=== PATIENT | female | born 1940 | race Caucasian/White ===

== ENCOUNTER 2016-07-03 09:37 | Outpatient (CLI) | payer OTHER ==
--- NOTE | 2016-07-03 10:52 | DIAGNOSTIC IMAGING REPORT ---
PROCEDURE: US BILATERAL CAROTID DOPPLER INDICATION: TIA TECHNIQUE: Color Doppler duplex imaging of the carotid and vertebral vessels. COMPARISON: None. FINDINGS: Right carotid system: No significant stenosis visualized. The waveforms are normal. Left carotid system: No significant stenosis visualized. The waveforms are normal. Vertebral System: Antegrade vertebral artery flow bilaterally. Right common carotid artery peak systolic velocity 63 cm/second. Right internal carotid artery peak systolic velocity 67 cm/second. Right external carotid artery peak systolic velocity 71 cm/second. Right zknqithc-gj-yjwqiz carotid artery ratio 1.1 Right vertebral artery peak systolic velocity 43 cm/second. Left common carotid artery peak systolic velocity 57 cm/second. Left internal carotid artery peak systolic velocity 54 cm/second. Left external carotid artery peak systolic velocity 44 cm/second. Left sfacegnn-ra-ubxlff carotid artery ratio 0.9 Left vertebral artery peak systolic velocity 41 cm/second. IMPRESSION: 1. No hemodynamically significant stenosis in either carotid system. 2. Antegrade vertebral artery flow bilaterally. Velocity criteria are extrapolated from diameter data as defined by the Society of Radiologists in Ultrasound Consensus Conference, Radiology 2003; 229; 340-346.
--- NOTE | 2016-07-03 10:52 | DIAGNOSTIC IMAGING REPORT ---
PROCEDURE: US BILATERAL CAROTID DOPPLER INDICATION: TIA TECHNIQUE: Color Doppler duplex imaging of the carotid and vertebral vessels. COMPARISON: None. FINDINGS: Right carotid system: No significant stenosis visualized. The waveforms are normal. Left carotid system: No significant stenosis visualized. The waveforms are normal. Vertebral System: Antegrade vertebral artery flow bilaterally. Right common carotid artery peak systolic velocity 63 cm/second. Right internal carotid artery peak systolic velocity 67 cm/second. Right external carotid artery peak systolic velocity 71 cm/second. Right foskrktd-hz-sowxxv carotid artery ratio 1.1 Right vertebral artery peak systolic velocity 43 cm/second. Left common carotid artery peak systolic velocity 57 cm/second. Left internal carotid artery peak systolic velocity 54 cm/second. Left external carotid artery peak systolic velocity 44 cm/second. Left hlssqbgz-sc-ginfif carotid artery ratio 0.9 Left vertebral artery peak systolic velocity 41 cm/second. IMPRESSION: 1. No hemodynamically significant stenosis in either carotid system. 2. Antegrade vertebral artery flow bilaterally. Velocity criteria are extrapolated from diameter data as defined by the Society of Radiologists in Ultrasound Consensus Conference, Radiology 2003; 229; 340-346.
--- NOTE | 2016-07-03 13:15 | DIAGNOSTIC IMAGING REPORT ---
PROCEDURE: MG BILATERAL SCREENING W/CAD INDICATION: Screening. Family history breast carcinoma (niece). TECHNIQUE: Bilateral CC and MLO digital views. COMPARISON: None available. FINDINGS: Computer-aided detection applied. Dense parenchymal pattern with a few dystrophic and micro calcifications. IMPRESSION: 1. Probable negative mammogram. Comparison with prior outside mammogram studies is recommended. If and when these become available, an addendum can be issued this report. RESULT CODE: 0- Prior images needed. A. A negative report should not delay biopsy if a dominant or clinically suspicious mass is present. 10-15% of cancers are not identified by x-ray. B. A negative report may reinforce clinical impression. C. Adenosis and dense breasts may obscure an underlying neoplasm. D. False positive reports average 6-10%. E.. A yearly screening mammogram is recommended. A reminder letter will be scheduled.
== END 2016-07-03 23:00 ==
LOC: US SRH 09:37 → MAM SRH 11:30 → US SRH 23:00
DX: Z12.31 Encounter for screening mammogram for malignant neoplasm of breast (principal); Z13.6 Encounter for screening for cardiovascular disorders

== ENCOUNTER 2016-10-11 08:31 | Emergency (ER) | payer OTHER ==
--- NOTE | 2016-10-11 10:32 | DIAGNOSTIC IMAGING REPORT ---
PROCEDURE: XR CHEST 1 VIEW INDICATION: SHORTNESS OF BREATH TECHNIQUE: Portable AP view 10:12 a.m. COMPARISON: None. FINDINGS: Mild hyperinflation. Lungs are clear. Heart and mediastinum are normal. Mild dextroscoliosis. IMPRESSION: 1. Hyperinflation.
--- NOTE | 2016-10-11 13:15 | ED CLINICAL REPORT ---
Clinical Report - Physicians/Mid Levels [facility] [address] [place] [address] 10/11/2016 8:32 Patient: MAYA COLMENARES Time Seen: 09:31 Oct 11 2016. Arrived- By private vehicle. Historian- patient. CPT: ER phys charges level 5 plus (#[id number]). EKG interpretation (#[id number]). HISTORY OF PRESENT ILLNESS Chief Complaint: CHEST PAIN. SHORTNESS OF BREATH. This started today also dysuria and is still present. Onset during light activity. At its maximum, severity described as moderate. When seen in the E.D., severity described as moderate. Modifying factors- worsened by deep breaths. It is described as burning and "pain" and it is described as located in the central chest area. No nausea, vomiting, difficulty breathing or diaphoresis. Similar symptoms previously: None. Recent medical care: Not recently seen/assessed. REVIEW OF SYSTEMS No fever, chills, cough, pedal edema or calf pain. No sore throat, black stools, difficulty with urination, skin rash or enlarged lymph nodes. No joint pain or bloody stools. She has had abdominal pain. All systems otherwise negative, except as recorded above. PAST HISTORY Depression. TIA - Transient Ischemic Attack. CVA - Cerebrovascular Accident. Parkinson's Disease. Additional Surgeries: no known surgeries. Medications: Carbidopa-Levodopa Oral. Zoloft Oral. Fluconazole Oral. Primidone Oral. Plavix. SOCIAL HISTORY Never smoker. No alcohol use or drug use. ADDITIONAL NOTES The nursing notes have been reviewed. PHYSICAL EXAM Vital Signs: 10/11/2016 08:35 BP: 145/99. HR: 94. RR: 22. O2 saturation: 96%. Appearance: Alert. No acute distress. (Mask facies). Eyes: Pupils equal, round and reactive to light. Eyes normal inspection. ENT: Pharynx normal. Neck: Normal inspection. Neck supple. CVS: Normal heart rate and rhythm. Heart sounds normal. Pulses normal. No cardiac murmur. Respiratory: No respiratory distress. Breath sounds normal. Chest nontender. Abdomen: Soft. Moderate tenderness in the epigastric area. Bowel sounds normal. No mass. Back: Normal external inspection. No CVA tenderness. Skin: Skin warm. Normal skin color. No rash. Extremities: Extremities exhibit normal ROM. No calf tenderness. No lower extremity edema. Neuro: Oriented X 3. No motor deficit. No sensory deficit. Reflexes normal. LABS, X-RAYS, AND EKG EKG: No acute process. No acute ischemia. Normal sinus rhythm. Normal P waves. Normal QRS complex. Normal axis. Normal ST and T waves. Prior EKG unavailable. The study has been interpreted contemporaneously. The study has been independently viewed by me. The EKG appears to be a good tracing. Chest X-ray: Hyperinflation present. No infiltrate. Views: AP (portable). Technique: good. The X-rays were independently viewed by me and interpreted contemporaneously by me. Prior films were not available for comparison. Laboratory Tests: CBC w Diff: (CIARA: 10/11/2016 10:10) ( [facility] Final results Test Result Flag Units (Reference) WHITE BLOOD COUNT 9.3 K/uL (4.5-11.5) RED BLOOD COUNT 4.73 M/uL (4.00-5.20) HEMOGLOBIN 13.7 gm/dL (12.0-16.0) HEMATOCRIT 41.2 % (36.0-46.0) MEAN CELL VOLUME 87 fL (80-100) MEAN CORPUSCULAR HGB 29 pg (26-34) MEAN CORPUSCULAR HGB CONC 33 g/dL (31-37) RED CELL DISTRIBUTION WIDTH 12.9 % (11.6-14.8) PLATELET COUNT 285 K/uL (150-400) NEUTROPHIL % 79.8 H % (50-75) LYMPH % 14.2 L % (25-40) MONO % 5.0 % (3-14) EOSINOPHIL % 0.8 % (0-4) BASOPHIL % 0.2 % (0-2) [id number]: (CIARA: 10/11/2016 10:10) ( [facility] 10/11[facility]2016 11:07) Final results Test Result Flag Units (Reference) D-DIMER QUANTITATIVE < 0.27 L ug/mLFEU (0.27-0.52) The primary value of this quantitative assay relates toits negative predictive value (i.e. exclusion) of pulmonaryembolism/deep vein thrombosis/DIC.Elevated levels of d-dimer may also occur with:, age, cancer, inflammation, liver disease,post-op, infection, hematoma, coronary disease, peripheralarteriopathy, bleeding disorders and thrombolytic treatment.Results should be correlated with other clinical andradiological data.Testing Methodology: Latex Immunoassay Troponin-I: (CIARA: 10/11/2016 12:15) ( [facility] 10/11/2016 13:00) Final results Test Result Flag Units (Reference) TROPONIN I <0.05 ng/mL (0.00-1.5) TROPONIN REFERENCE RANGE:<0.1 NEGATIVE0.1-1.5 INDETERMINANT>1.5 POSITIVE BNP: (CIARA: 10/11/2016 10:10) ( [facility] 10/11/2016 11:37) Final results Test Result Flag Units (Reference) B-TYPE NATRIURETIC PEPTIDE 40.9 pg/ml (5-100) CHEM 13 PANEL: (CIARA: 10/11/2016 10:10) ( [facility] 10/11/2016 11:05) Final results Test Result Flag Units (Reference) GLUCOSE 99 mg/dL (70-110) BUN 18 mg/dL (7-18) CREATININE 0.9 mg/dL (0.6-1.3) Estimated GFR >60 mL/min Estimated GFR- >60 mL/min Note: Persistent reduction over 3 months in eGFR<60 mL/min/1.73 m2 defines CKD. Patients with eGFR values>=60 mL/min/1.73 m2 may also have CKD if evidence ofpersistent proteinuria. Additional information may be foundat [email or web address]. SODIUM 141 mmol/L (136-145) POTASSIUM 4.3 mmol/L (3.5-5.1) CHLORIDE 103 mmol/L (98-107) CARBON DIOXIDE 28 mmol/L (21-32) CALCIUM 9.0 mg/dL (8.5-10.1) TOTAL PROTEIN 7.1 g/dL (6.4-8.2) ALBUMIN 3.5 g/dL (3.3-5.0) BILIRUBIN, TOTAL 0.4 mg/dL (0.0-1.0) ALKALINE PHOSPHATASE 85 U/L (46-116) AST (SGOT) 15 U/L (15-37) ALT (SGPT) 7 L U/L (12-78) MAGNESIUM 2.0 mg/dL (1.8-2.4) LIPASE 271 U/L (73-393) AMYLASE 101 U/L (25-115) CPK 119 U/L (24-260) TROPONIN I <0.05 ng/mL (0.00-1.5) TROPONIN REFERENCE RANGE:<0.1 NEGATIVE0.1-1.5 INDETERMINANT>1.5 POSITIVE . PROGRESS AND PROCEDURES Course of Care: Pt is on plavix and took it today. White GI cocktail : minimal effect. Still has epigastric tenderness to palpation. Carafate 20 ml Protonix 40 mg po Patient is stable. Symptoms much better. Patient/family counseled. Disposition: Discharged. Condition: stable and improved. CLINICAL IMPRESSION Probable chest pain of GI origin (due to esophageal reflux and esophagitis). INSTRUCTIONS No strenuous activity. Rest. Avoid alcohol and NSAIDS. Examples of NSAIDS include aspirin, ibuprofen (Advil) and naproxen (Aleve). Avoid spicy foods. Other diet: No caffeine. No alcohol. Warnings: Further evaluation is necessary. GENERAL WARNINGS: Return or contact your physician immediately if your condition worsens or changes unexpectedly, if not improving as expected, or if other problems arise. Prescription Medications: Zofran (orally disintegrating tablets) 4 mg: take 1 orally every 6 hours as needed for nausea. Dispense ten (10). No refill. Substitution is permissible. Carafate Liquid 1g/10 mL: take two (2) teaspoons orally four times daily (30 minutes before meals and at bedtime) for 10 days. Dispense sufficient quantity. No refill. Substitution is permissible. Prilosec 40 mg capsules: take 1 capsule orally every day for 10 days. Dispense ten (10). No refill. Substitution is permissible. Follow-up: Follow up with your doctor in one week. Call for an appointment. Understanding of the discharge instructions verbalized by patient. Discharge instructions reviewed with and understanding was verbalized by neighbor. (Electronically signed by Alex Silva MD 10/13/2016 20:50)
--- NOTE | 2016-10-11 13:15 | ED ORDER SUMMARY ---
..... Patient: MAYA COLMENARES OrderSheet [facility] VisitID: [id number] [address] [place] [address] 76y, F Registration Date/Time: 10/11/2016 ORDER SHEET Weight: 47.6 kg (stated) Allergies: None GENERAL ORDERS: Chest 1V Urgent (:10/11/2016 Radha VALDEZ) (Ack 10:00 All) (10:10 DMasalenaarka R.N.) [employer]in Outfitter (Continuous) (10/11/2016 Radha VALDEZ) (Ack 10:01 All) (10:01 Razaa R.N.) Cardiac Panel Stat (10/11/2016 Radha VALDEZ) (Ack 10:00 All) (10:01 Razaa R.N.) BNP Urgent (10/11/2016 Radha VALDEZ) (Ack 10:00 All) (10:01 Razaa R.N.) D-Dimer Urgent (10/11/2016 Radha VALDEZ) (Ack 10:00 All) (10:01 Razaa R.N.) Lipase Urgent (10/11/2016 Radha VALDEZ) (Ack 10:00 All) (10:01 Razaa R.N.) Amylase Urgent (10/11/2016 Radha VALDEZ) (Ack 10:00 All) (10:01 Razaa R.N.) Oxygen (2 L/min) (NC) (10/11/2016 Radha VALDEZ) (10:01 Armida R.N.) (Ack 10:01 All) Pulse oximeter (10/11/2016 Radha VALDEZ) (10:01 Armida R.N.) (Ack 10:01 All) EKG - ER Stat (10/11/2016 Radha VALDEZ) (Ack 10:01 All) (10:01 DMaziarka R.N.) Troponin-I (draw at 1200) Urgent (11:14 10/11/2016 Radha VALDEZ) (Ack 11:22 OHernandez) (11:26 DMaziarka R.N.) MEDICATION ORDERS: GI Cocktail WHITE PO 50 mL (NOW) (09:59 10/11/2016 Radha VALDEZ) (Ack 10:02 DMaziarka R.N.) (10:10 DMaziarka R.N.) Carafate PO 20 ml (NOW) (11:14 10/11/2016 Radha VALDEZ) (Ack 11:17 Yonyziarka R.N.) (11:23 DMaziarka R.N.) Protonix PO 40 mg (NOW) (11:14 10/11/2016 Radha VALDEZ) (Ack 11:17 DMaziarka R.N.) (11:23 DMaziarka R.N.) IV FLUIDS: IV Saline Lock (09:59 10/11/2016 Radha VALDEZ) (Ack 10:01 Josepharka R.N.) ORDER SHEET NOTES: [Electronically signed by Jannet Gorman R.N. (13:35 10/11/2016)] [Electronically signed by Alex Silva MD (20:50 10/13/2016)] [Electronically locked/signed by Jannet Gorman R.N. (13:35 10/11/2016)]
--- NOTE | 2016-10-11 13:15 | ED CLINICAL REPORT ---
Clinical Report - Physicians/Mid Levels [facility] [address] [place] [address] 10/11/2016 8:32 Patient: MAYA COLMENARES Time Seen: 09:31 Oct 11 2016. Arrived- By private vehicle. Historian- patient. CPT: ER phys charges level 5 plus (#[id number]). EKG interpretation (#[id number]). HISTORY OF PRESENT ILLNESS Chief Complaint: CHEST PAIN. SHORTNESS OF BREATH. This started today also dysuria and is still present. Onset during light activity. At its maximum, severity described as moderate. When seen in the E.D., severity described as moderate. Modifying factors- worsened by deep breaths. It is described as burning and "pain" and it is described as located in the central chest area. No nausea, vomiting, difficulty breathing or diaphoresis. Similar symptoms previously: None. Recent medical care: Not recently seen/assessed. REVIEW OF SYSTEMS No fever, chills, cough, pedal edema or calf pain. No sore throat, black stools, difficulty with urination, skin rash or enlarged lymph nodes. No joint pain or bloody stools. She has had abdominal pain. All systems otherwise negative, except as recorded above. PAST HISTORY Depression. TIA - Transient Ischemic Attack. CVA - Cerebrovascular Accident. Parkinson's Disease. Additional Surgeries: no known surgeries. Medications: Carbidopa-Levodopa Oral. Zoloft Oral. Fluconazole Oral. Primidone Oral. Plavix. SOCIAL HISTORY Never smoker. No alcohol use or drug use. ADDITIONAL NOTES The nursing notes have been reviewed. PHYSICAL EXAM Vital Signs: 10/11/2016 08:35 BP: 145/99. HR: 94. RR: 22. O2 saturation: 96%. Appearance: Alert. No acute distress. (Mask facies). Eyes: Pupils equal, round and reactive to light. Eyes normal inspection. ENT: Pharynx normal. Neck: Normal inspection. Neck supple. CVS: Normal heart rate and rhythm. Heart sounds normal. Pulses normal. No cardiac murmur. Respiratory: No respiratory distress. Breath sounds normal. Chest nontender. Abdomen: Soft. Moderate tenderness in the epigastric area. Bowel sounds normal. No mass. Back: Normal external inspection. No CVA tenderness. Skin: Skin warm. Normal skin color. No rash. Extremities: Extremities exhibit normal ROM. No calf tenderness. No lower extremity edema. Neuro: Oriented X 3. No motor deficit. No sensory deficit. Reflexes normal. LABS, X-RAYS, AND EKG EKG: No acute process. No acute ischemia. Normal sinus rhythm. Normal P waves. Normal QRS complex. Normal axis. Normal ST and T waves. Prior EKG unavailable. The study has been interpreted contemporaneously. The study has been independently viewed by me. The EKG appears to be a good tracing. Chest X-ray: Hyperinflation present. No infiltrate. Views: AP (portable). Technique: good. The X-rays were independently viewed by me and interpreted contemporaneously by me. Prior films were not available for comparison. Laboratory Tests: CBC w Diff: (CIARA: 10/11/2016 10:10) ( [facility] Final results Test Result Flag Units (Reference) WHITE BLOOD COUNT 9.3 K/uL (4.5-11.5) RED BLOOD COUNT 4.73 M/uL (4.00-5.20) HEMOGLOBIN 13.7 gm/dL (12.0-16.0) HEMATOCRIT 41.2 % (36.0-46.0) MEAN CELL VOLUME 87 fL (80-100) MEAN CORPUSCULAR HGB 29 pg (26-34) MEAN CORPUSCULAR HGB CONC 33 g/dL (31-37) RED CELL DISTRIBUTION WIDTH 12.9 % (11.6-14.8) PLATELET COUNT 285 K/uL (150-400) NEUTROPHIL % 79.8 H % (50-75) LYMPH % 14.2 L % (25-40) MONO % 5.0 % (3-14) EOSINOPHIL % 0.8 % (0-4) BASOPHIL % 0.2 % (0-2) [id number]: (CIARA: 10/11/2016 10:10) ( [facility]) Final results Test Result Flag Units (Reference) D-DIMER QUANTITATIVE < 0.27 L ug/mLFEU (0.27-0.52) The primary value of this quantitative assay relates toits negative predictive value (i.e. exclusion) of pulmonaryembolism/deep vein thrombosis/DIC.Elevated levels of d-dimer may also occur with:, age, cancer, inflammation, liver disease,post-op, infection, hematoma, coronary disease, peripheralarteriopathy, bleeding disorders and thrombolytic treatment.Results should be correlated with other clinical andradiological data.Testing Methodology: Latex Immunoassay Troponin-I: (CIARA: 10/11/2016 12:15) ( [facility] 10/11/2016 13:00) Final results Test Result Flag Units (Reference) TROPONIN I <0.05 ng/mL (0.00-1.5) TROPONIN REFERENCE RANGE:<0.1 NEGATIVE0.1-1.5 INDETERMINANT>1.5 POSITIVE BNP: (CIARA: 10/11/2016 10:10) ( [facility] 10/11/2016 11:37) Final results Test Result Flag Units (Reference) B-TYPE NATRIURETIC PEPTIDE 40.9 pg/ml (5-100) CHEM 13 PANEL: (CIARA: 10/11/2016 10:10) ( [facility] 10/11/2016 11:05) Final results Test Result Flag Units (Reference) GLUCOSE 99 mg/dL (70-110) BUN 18 mg/dL (7-18) CREATININE 0.9 mg/dL (0.6-1.3) Estimated GFR >60 mL/min Estimated GFR- >60 mL/min Note: Persistent reduction over 3 months in eGFR<60 mL/min/1.73 m2 defines CKD. Patients with eGFR values>=60 mL/min/1.73 m2 may also have CKD if evidence ofpersistent proteinuria. Additional information may be foundat [email or web address].org. SODIUM 141 mmol/L (136-145) POTASSIUM 4.3 mmol/L (3.5-5.1) CHLORIDE 103 mmol/L (98-107) CARBON DIOXIDE 28 mmol/L (21-32) CALCIUM 9.0 mg/dL (8.5-10.1) TOTAL PROTEIN 7.1 g/dL (6.4-8.2) ALBUMIN 3.5 g/dL (3.3-5.0) BILIRUBIN, TOTAL 0.4 mg/dL (0.0-1.0) ALKALINE PHOSPHATASE 85 U/L (46-116) AST (SGOT) 15 U/L (15-37) ALT (SGPT) 7 L U/L (12-78) MAGNESIUM 2.0 mg/dL (1.8-2.4) LIPASE 271 U/L (73-393) AMYLASE 101 U/L (25-115) CPK 119 U/L (24-260) TROPONIN I <0.05 ng/mL (0.00-1.5) TROPONIN REFERENCE RANGE:<0.1 NEGATIVE0.1-1.5 INDETERMINANT>1.5 POSITIVE . PROGRESS AND PROCEDURES Course of Care: Pt is on plavix and took it today. White GI cocktail : minimal effect. Still has epigastric tenderness to palpation. Carafate 20 ml Protonix 40 mg po Patient is stable. Symptoms much better. Patient/family counseled. Disposition: Discharged. Condition: stable and improved. CLINICAL IMPRESSION Probable chest pain of GI origin (due to esophageal reflux and esophagitis). INSTRUCTIONS No strenuous activity. Rest. Avoid alcohol and NSAIDS. Examples of NSAIDS include aspirin, ibuprofen (Advil) and naproxen (Aleve). Avoid spicy foods. Other diet: No caffeine. No alcohol. Warnings: Further evaluation is necessary. GENERAL WARNINGS: Return or contact your physician immediately if your condition worsens or changes unexpectedly, if not improving as expected, or if other problems arise. Prescription Medications: Zofran (orally disintegrating tablets) 4 mg: take 1 orally every 6 hours as needed for nausea. Dispense ten (10). No refill. Substitution is permissible. Carafate Liquid 1g/10 mL: take two (2) teaspoons orally four times daily (30 minutes before meals and at bedtime) for 10 days. Dispense sufficient quantity. No refill. Substitution is permissible. Prilosec 40 mg capsules: take 1 capsule orally every day for 10 days. Dispense ten (10). No refill. Substitution is permissible. Follow-up: Follow up with your doctor in one week. Call for an appointment. Understanding of the discharge instructions verbalized by patient. Discharge instructions reviewed with and understanding was verbalized by neighbor. (Electronically signed by Alex Silva MD 10/13/2016 20:50)
--- NOTE | 2016-10-11 13:15 | ED NURSING NOTES ---
Clinical Report - Nurses [facility] [place] [address] 10/11/2016 8:32 Patient: MAYA COLMENARES TRIAGE Triage time 08:35. Acuity: LEVEL 2. Chief Complaint: PAIN ON INSPIRATION and CHEST PAIN. --08:38 Jannet Gorman R.N. 08:35 10/11/16. BP: 145/99. HR: 94. RR: 22. O2 saturation: 96%. --08:38 Jannet Gorman R.N. 08:38 10/11/16. Temp: 98.2 F. Pain level now 10. --08:38 Jannet Gorman R.N. Weight: 47.6 kg stated. Height/Length: 61 inches Per Patient. BMI: 19.8. --08:35 Jannet Gorman R.N. Medications Plavix. --08:57 Jannet Gorman R.N. Primidone Oral. --08:58 Jannet Gorman R.N. Fluconazole Oral. --08:59 Jannet Gorman R.N. Zoloft Oral. --08:59 Jannet Gorman R.N. Carbidopa-Levodopa Oral. --09:04 Jannet Gorman R.N. Allergies None. --13:34 Jannet Gorman R.N. History Arrived by private vehicle, and accompanied by family. Primary physician (Ram[place]). This started today. Onset. (Heavyness in her chest with SOB). PAST MEDICAL HX: Immunizations: up-to-date. SOCIAL HX: Smoker- current status unknown (none). No alcohol use or drug use. --08:38 Jannet Gorman R.N. PROBLEMS: Depression. TIA - Transient Ischemic Attack. CVA - Cerebrovascular Accident. Parkinson's Disease. --09:00 Jannet Gorman R.N. ADDITIONAL SURGERIES: no known surgeries. PHYSICAL ASSESSMENT To room via wheelchair. GENERAL / NEURO / PSYCH: Alert. Oriented X 4. Appears in distress. RESPIRATORY: Mild respiratory distress. --08:39 Jannet Gorman R.N. NURSING PROGRESS NOTES Patient gowned. Patient ready for evaluation- ED physician notified. --08:39 Jannet Gorman R.N. 09:03 10/11/2016 Site #1 started via IV in the right hand with an 18g angiocath; two attempts. Saline lock flushed with 10 mL saline. --09:03 Jannet Gorman R.N. 10:10 10/11/2016 GI COCKTAIL WHITE (Simethicone) PO 30 mL given. Allergies verified and confirmed 5 rights. --10:10 Jannet Gorman R.N. Patient ID band checked for patient name and birthdate: patient confirmed. Blood samples drawn from the left antecubital space with 23g butterfly per protocol ; labeled in presence of the patient: rainbow set. --10:16 Kaye Greer EKG time: (08:45 AM). EKG was performed by a tech and shown to the ED physician. --10:16 Kaye Greer 10:25 10/11/16. BP: 134/63. HR: 70. RR: 20. O2 saturation: 98%. Pain level now 0/10. --10:26 Jannet Gorman R.N. The patient is calm and resting quietly. Overall patient status is improved. RESPIRATORY: No respiratory distress. --10:26 Jannet Gorman R.N. 11:23 10/11/2016 Carafate (Sucralfate) PO 2 gm given. Allergies verified and confirmed 5 rights. --11:23 Jannet Gorman R.N. 11:23 10/11/2016 Protonix (Pantoprazole Sodium) PO 40 mg given. Allergies verified and confirmed 5 rights. --11:23 Jannet Gorman R.N. The patient is calm and resting quietly. ( Up to bathroom kathryn well.). --12:00 Jannet Gorman R.N. Patient ID band checked for patient name and birthdate: patient confirmed. Blood samples drawn from the left antecubital space with 23g butterfly by [employer] per protocol ; labeled in presence of the patient: green top. --12:29 Kaye Greer 12:53 10/11/16. BP: 129/62. HR: 70. RR: 18. O2 saturation: 100%. Pain level now 0/10. --12:54 Jannet Gorman R.N. The patient is resting quietly. Overall patient status is improved. RESPIRATORY: No respiratory distress. Patient waiting for lab results. --12:54 Jannet Gorman R.N. 13:23 10/11/2016 Site #1 removed upon discharge. Bandage applied. --13:33 Jannet Gorman R.N. DISPOSITION / DISCHARGE Departure time: 13:32. Condition at departure: improved. No learning barriers present. Discharge instructions provided and reviewed with the patient. Patient verbalized understanding. Written instructions provided in Lao. The patient was accompanied by family. She left the Emergency Department ambulatory and via private vehicle. Family member driving. --13:32 Jannet Gorman R.N. 13:28 10/11/16. BP: 142/73. HR: 65. RR: 18. O2 saturation: 100%. Pain level now 0/10. --13:32 Jannet Gorman R.N. Locked/Released at 10/11/2016 13:35 by Jannet Gorman R.N.
--- NOTE | 2016-10-11 13:15 | ED ORDER SUMMARY ---
..... Patient: MAYA COLMENARES OrderSheet [facility] VisitID: [id number] [address] [place] [address] 76y, F Registration Date/Time: 10/11/2016 ORDER SHEET Weight: 47.6 kg (stated) Allergies: None GENERAL ORDERS: Chest 1V Urgent (:10/11/2016 Radha VALDEZ) (Ack 10:00 All) (10:10 DMasalenaarka R.N.) Workers Compensation Manager (Continuous) (10/11/2016 Radha VALDEZ) (Ack 10:01 All) (10:01 Razaa R.N.) Cardiac Panel Stat (10/11/2016 Radha VALDEZ) (Ack 10:00 All) (10:01 Razaa R.N.) BNP Urgent (10/11/2016 Radha VALDEZ) (Ack 10:00 All) (10:01 Razaa R.N.) D-Dimer Urgent (10/11/2016 Radha VALDEZ) (Ack 10:00 All) (10:01 Razaa R.N.) Lipase Urgent (10/11/2016 Radha VALDEZ) (Ack 10:00 All) (10:01 Razaa R.N.) Amylase Urgent (10/11/2016 Radha VALDEZ) (Ack 10:00 All) (10:01 Razaa R.N.) Oxygen (2 L/min) (NC) (10/11/2016 Radha VALDEZ) (10:01 Armida R.N.) (Ack 10:01 All) Pulse oximeter (10/11/2016 Radha VALDEZ) (10:01 Armida R.N.) (Ack 10:01 All) EKG - ER Stat (10/11/2016 Radha VALDEZ) (Ack 10:01 All) (10:01 DMaziarka R.N.) Troponin-I (draw at 1200) Urgent (11:14 10/11/2016 Radha VALDEZ) (Ack 11:22 OHernandez) (11:26 DMaziarka R.N.) MEDICATION ORDERS: GI Cocktail WHITE PO 50 mL (NOW) (09:59 10/11/2016 Radha VALDEZ) (Ack 10:02 DMaziarka R.N.) (10:10 DMaziarka R.N.) Carafate PO 20 ml (NOW) (11:14 10/11/2016 Radha VALDEZ) (Ack 11:17 Yonyziarka R.N.) (11:23 DMaziarka R.N.) Protonix PO 40 mg (NOW) (11:14 10/11/2016 Radha VALDEZ) (Ack 11:17 DMaziarka R.N.) (11:23 DMaziarka R.N.) IV FLUIDS: IV Saline Lock (09:59 10/11/2016 Radha VALDEZ) (Ack 10:01 Josepharka R.N.) ORDER SHEET NOTES: [Electronically signed by Jannet Gorman R.N. (13:35 10/11/2016)] [Electronically signed by Alex Silva MD (20:50 10/13/2016)] [Electronically locked/signed by Jannet Gorman R.N. (13:35 10/11/2016)]
--- NOTE | 2016-10-11 13:15 | ED NURSING NOTES ---
Clinical Report - Nurses [facility] [place] [address] 10/11/2016 8:32 Patient: MAYA COLMENARES TRIAGE Triage time 08:35. Acuity: LEVEL 2. Chief Complaint: PAIN ON INSPIRATION and CHEST PAIN. --08:38 Jannet Gorman R.N. 08:35 10/11/16. BP: 145/99. HR: 94. RR: 22. O2 saturation: 96%. --08:38 Jannet Gorman R.N. 08:38 10/11/16. Temp: 98.2 F. Pain level now 10. --08:38 Jannet Gorman R.N. Weight: 47.6 kg stated. Height/Length: 61 inches Per Patient. BMI: 19.8. --08:35 Jannet Gorman R.N. Medications Plavix. --08:57 Jannet Gorman R.N. Primidone Oral. --08:58 Jannet Gorman R.N. Fluconazole Oral. --08:59 Jannet Gorman R.N. Zoloft Oral. --08:59 Jannet Gorman R.N. Carbidopa-Levodopa Oral. --09:04 Jannet Gorman R.N. Allergies None. --13:34 Jannet Gorman R.N. History Arrived by private vehicle, and accompanied by family. Primary physician ([place]). This started today. Onset. (Heavyness in her chest with SOB). PAST MEDICAL HX: Immunizations: up-to-date. SOCIAL HX: Smoker- current status unknown (none). No alcohol use or drug use. --08:38 Jannet Gorman R.N. PROBLEMS: Depression. TIA - Transient Ischemic Attack. CVA - Cerebrovascular Accident. Parkinson's Disease. --09:00 Jannet Gorman R.N. ADDITIONAL SURGERIES: no known surgeries. PHYSICAL ASSESSMENT To room via wheelchair. GENERAL / NEURO / PSYCH: Alert. Oriented X 4. Appears in distress. RESPIRATORY: Mild respiratory distress. --08:39 Jannet Gorman R.N. NURSING PROGRESS NOTES Patient gowned. Patient ready for evaluation- ED physician notified. --08:39 Jannet Gorman R.N. 09:03 10/11/2016 Site #1 started via IV in the right hand with an 18g angiocath; two attempts. Saline lock flushed with 10 mL saline. --09:03 Jannet Gorman R.N. 10:10 10/11/2016 GI COCKTAIL WHITE (Simethicone) PO 30 mL given. Allergies verified and confirmed 5 rights. --10:10 Jannet Gorman R.N. Patient ID band checked for patient name and birthdate: patient confirmed. Blood samples drawn from the left antecubital space with 23g butterfly per protocol ; labeled in presence of the patient: rainbow set. --10:16 Kaye Greer EKG time: (08:45 AM). EKG was performed by a tech and shown to the ED physician. --10:16 Kaye Greer 10:25 10/11/16. BP: 134/63. HR: 70. RR: 20. O2 saturation: 98%. Pain level now 0/10. --10:26 Jannet Gorman R.N. The patient is calm and resting quietly. Overall patient status is improved. RESPIRATORY: No respiratory distress. --10:26 Jannet Gorman R.N. 11:23 10/11/2016 Carafate (Sucralfate) PO 2 gm given. Allergies verified and confirmed 5 rights. --11:23 Jannet Gorman R.N. 11:23 10/11/2016 Protonix (Pantoprazole Sodium) PO 40 mg given. Allergies verified and confirmed 5 rights. --11:23 Jannet Gorman R.N. The patient is calm and resting quietly. ( Up to bathroom kathryn well.). --12:00 Jannet Groman R.N. Patient ID band checked for patient name and birthdate: patient confirmed. Blood samples drawn from the left antecubital space with 23g butterfly by [employer] per protocol ; labeled in presence of the patient: green top. --12:29 Kaye Greer 12:53 10/11/16. BP: 129/62. HR: 70. RR: 18. O2 saturation: 100%. Pain level now 0/10. --12:54 Jannet Gorman R.N. The patient is resting quietly. Overall patient status is improved. RESPIRATORY: No respiratory distress. Patient waiting for lab results. --12:54 Jannet Gorman R.N. 13:23 10/11/2016 Site #1 removed upon discharge. Bandage applied. --13:33 Jannet Gorman R.N. DISPOSITION / DISCHARGE Departure time: 13:32. Condition at departure: improved. No learning barriers present. Discharge instructions provided and reviewed with the patient. Patient verbalized understanding. Written instructions provided in Kinyarwanda. The patient was accompanied by family. She left the Emergency Department ambulatory and via private vehicle. Family member driving. --13:32 Jannet Gorman R.N. 13:28 10/11/16. BP: 142/73. HR: 65. RR: 18. O2 saturation: 100%. Pain level now 0/10. --13:32 Jannet Gorman R.N. Locked/Released at 10/11/2016 13:35 by Jannet Gorman R.N.
--- NOTE | 2016-10-13 20:50 | ED MED RECONCILIATION SUMMARY ---
Patient: MAYA COLMENARES Medication Reconciliation Report [facility] VisitID: [id number] [address] [place] [address] 76y, F Registration Date/Time: 10/11/2016 Weight: 47.6 kg Height/Length: 61 in. BMI: 19.8 ALLERGIES: None The patient's Home Medications are listed below: THE FOLLOWING MEDICATIONS NEED TO BE RECONCILED: Carbidopa-Levodopa Oral Fluconazole Oral Plavix Primidone Oral Zoloft Oral The source(s) of the original Home Medication information: Not obtained. The following Medications were given to the patient in the Emergency Department: GI COCKTAIL WHITE [PO] PO 30 mL, administered: 10/11/2016 10:10:00 AM Carafate [PO] PO 2 gm, administered: 10/11/2016 11:23:00 AM Protonix [PO] PO 40 mg, administered: 10/11/2016 11:23:00 AM The following Medications were prescribed to the patient: Zofran (orally disintegrating tablets) 4 mg: take 1 orally every 6 hours as needed for nausea. Dispense ten (10). No refill. Substitution is permissible. -- Alex Silva MD Carafate Liquid 1g/10 mL: take two (2) teaspoons orally four times daily (30 minutes before meals and at bedtime) for 10 days. Dispense sufficient quantity. No refill. Substitution is permissible. -- Alex Silva MD Prilosec 40 mg capsules: take 1 capsule orally every day for 10 days. Dispense ten (10). No refill. Substitution is permissible. -- Alex Silva MD
--- NOTE | 2016-10-13 20:50 | ED MAR SUMMARY ---
..... Medication Administration Record [facility] [address] [place] [address] Patient: MAYA COLMENARES Visit ID: [id number] 76y, F Weight: 47.6 kg Height/Length: 61 in BMI: 19.8 ALLERGIES: None Given 10:10 10/11/2016 Jannet Gorman, R.N. Medication Administered: GI COCKTAIL WHITE [PO] (SIMETHICONE), Dose: 30 mL PO. Medication Ordered: GI Cocktail WHITE PO 50 mL (NOW). Given 11:10/11/2016 Jannet Gorman, R.N. Medication Administered: CARAFATE [PO] (SUCRALFATE), Dose: 2 gm PO. Medication Ordered: Carafate PO 20 ml (NOW). Given 11:10/11/2016 Jannet Gorman, R.N. Medication Administered: PROTONIX [PO] (PANTOPRAZOLE SODIUM), Dose: 40 mg PO. Medication Ordered: Protonix PO 40 mg (NOW).
--- NOTE | 2016-10-13 20:50 | ED DISCHARGE INSTRUCTIONS ---
Patient: MAYA COLMENARES General Instructions [facility] VisitID: [id number] [place] [address] 76y, F Registration Date/Time: 10/11/2016 Probable chest pain of GI origin (due to esophageal reflux and esophagitis). INSTRUCTIONS No strenuous activity. Rest. Avoid alcohol and NSAIDS. Examples of NSAIDS include aspirin, ibuprofen (Advil) and naproxen (Aleve). Avoid spicy foods. Other diet: No caffeine. No alcohol. Warnings: Further evaluation is necessary. GENERAL WARNINGS: Return or contact your physician immediately if your condition worsens or changes unexpectedly, if not improving as expected, or if other problems arise. Prescription Medications: Zofran (orally disintegrating tablets) 4 mg: take 1 orally every 6 hours as needed for nausea. Dispense ten (10). No refill. Substitution is permissible. Carafate Liquid 1g/10 mL: take two (2) teaspoons orally four times daily (30 minutes before meals and at bedtime) for 10 days. Dispense sufficient quantity. No refill. Substitution is permissible. Prilosec 40 mg capsules: take 1 capsule orally every day for 10 days. Dispense ten (10). No refill. Substitution is permissible. Follow-up: Follow up with your doctor in one week. Call for an appointment. Understanding of the discharge instructions verbalized by patient. Discharge instructions reviewed with and understanding was verbalized by neighbor. ADDITIONAL INFORMATION GERD (Adult) The esophagus is a tube that carries food from the mouth to the stomach. A valve at the lower end of the esophagus prevents stomach acid from flowing upward. If this valve does not work properly, acid from the stomach enters the esophagus. If this occurs over and over, the acid will injure the lining of the esophagus. This condition is called GERD (gastroesophageal reflux disease) or acid reflux. When stomach acid flows upward into the esophagus, it causes burning, pressure or sharp pain in the upper abdomen or mid to lower chest. The pain can spread to the neck, back, or shoulder, similar to heart pain (angina). There may be belching, an acid taste in the back of the throat, chronic cough, or sore throat or hoarseness. GERD symptoms often occur during the day after a big meal, but it can also occur at night when lying down. Smoking,as well as drinking alcohol, increases the risk of GERD. GERD is a chronic condition. Once it begins, it is often lifelong. Treatment includes changes in eating habits and the use of acid vernon medications to decrease the amount of acid in the stomach. Symptoms often improve with treatment, but if treatment is stopped, the symptoms usually return after a few months. So most persons with GERD will need to continue treatment. Home Care: Take the prescribed acid vernon medication for the full course of treatment even if you begin to feel better sooner. This medication can take up to several days to fully control your symptoms. If you cant afford the prescribed medication, you can try jycl-rwi-nkqhryr acid blockers, such as Pepcid AC, Tagamet, Zantac, or Aciphex. If these do not relieve your symptoms, a stronger acid-vernon can be tried, such as Prilosec OTC. You can use antacids, such as Tums, Rolaids, Mylanta, or Maalox, for pain. This will be useful the first few days after starting acid blockers when the blockers havent started working yet. Follow the directions on the label. Liquid antacids may work better than tablets. Note that antacids can interfere with absorption of certain medications. Specifically, do not take Tagamet (cimetidine), Zantac (ranitidine), or Carafate (sucralfate) within 1 hour of taking an antacid. Talk with your pharmacist if you have any questions. Limit or avoid fatty, fried, and spicy foods, as well as coffee, chocolate, mint, and foods with high acid content such as tomatoes and citrus fruit and juices (orange, grapefruit, lemon). Avoid alcohol and smoking. Dont eat large meals, especially at night. Frequent, smaller meals are best. Do not lie down right after eating. And dont eat anything 3 hours before going to bed. If you are overweight, losing weight will reduce symptoms. Women should not wear corsets or girdles because this increases pressure on the stomach and worsens reflux. If your symptoms occur during sleep, use a foam wedge to elevate your upper body (not just your head.) Or, place 4" blocks under the head of your bed. Follow Up with your doctor or as advised by our staff. Further testing may be needed. If you do not begin to improve over the next 4 days, contact your doctor. If you had an x-ray, CT scan, or ECG (electrocardiogram), it will be reviewed by a specialist. Youll be notified of any new findings that affect your care. Get Prompt Medical Attention if any of the following occur: Stomach pain gets worse or moves to the lower right abdomen (appendix area) Chest pain appears or gets worse, or spreads to the back, neck, shoulder, or arm Frequent vomiting (cant keep down liquids) Blood in the stool or vomit (red or black in color) Feeling weak or dizzy, fainting, or trouble breathing Fever of 100.4F (38C) or higher, or as directed by your healthcare provider [place] Diet A bland diet is used for patients with an upset stomach. It consists of foods that are mild and easy to digest. It is better to eat small frequent meals rather than three large meals a day. BEVERAGES OK: Fruit juices, non-caffeinated teas and coffee, non-carbonated means AVOID: Carbonated beverage, caffeinated tea and coffee, all alcoholic beverages BREAD OK: Refined white, wheat or rye bread, michael or soda crackers, Rosa Elena toast, plain rolls, bagels AVOID: Whole-grain bread CEREAL OK: Refined cereals: cooked or ready to eat AVOID: Whole grain cereals and granola, or those containing bran, seeds or nuts DESSERTS OK: Peanut butter and all others except those to "avoid" AVOID: Chocolate, cocoa, coconut, popcorn, nuts, seeds, jam, marmalade FRUITS OK: Canned, cooked, frozen or fresh fruits without seeds or tough skin AVOID: Olives, skin and seeds of fruit MEATS OK: All fresh or preserved meat, fish and fowl AVOID: Any that are prepared with those spices to "avoid" CHEESE & EGGS OK: Eggs, cottage cheese, cream cheese, other cheeses AVOID: All cheeses made with those spices to "avoid" POTATOES & PASTA OK: Potato, rice, macaroni, noodles, spaghetti AVOID: None SOUPS OK: All soups without heavy seasoning AVOID: Soups made with those spices to "avoid" VEGETABLES OK: Canned, cooked, fresh or frozen mildly flavored vegetables without seeds, skins or coarse fiber AVOID: Vegetables prepared with those spices to "avoid"; skin and seeds of vegetables and those with coarse fiber SPICES OK: Salt, lemon and [place] juice, vinegar, all extracts, christian, cinnamon, thyme, mace, allspice, paprika AVOID: Newberry powder, cloves, pepper, seed spices, garlic, gravy pickles, highly seasoned salad dressings Ondansetron Oral disintegrating tablet What is this medicine? ONDANSETRON (on KAREN se eloy) is used to treat nausea and vomiting caused by chemotherapy. It is also used to prevent or treat nausea and vomiting after surgery. How should I use this medicine? These tablets are made to dissolve in the mouth. Do not try to push the tablet through the foil backing. With dry hands, peel away the foil backing and gently remove the tablet. Place the tablet in the mouth and allow it to dissolve, then swallow. While you may take these tablets with water, it is not necessary to do so. Talk to your automatic centrifugal station operator regarding the use of this medicine in children. Special care may be needed. What side effects may I notice from receiving this medicine? Side effects that you should report to your doctor or health daycare assistant as soon as possible: allergic reactions like skin rash, itching or hives, swelling of the face, lips, or tongue breathing problems dizziness fast or irregular heartbeat feeling faint or lightheaded, falls fever and chills swelling of the hands and feet tightness in the chest Side effects that usually do not require medical attention (report to your doctor or health daycare assistant if they continue or are bothersome): constipation or diarrhea headache What may interact with this medicine? Do not take this medicine with any of the following medications: -apomorphine -cisapride -dofetilide -dronedarone -pimozide -thioridazine -ziprasidone This medicine may also interact with the following medications: -carbamazepine -phenytoin -rifampicin -tramadol -other medicines that prolong the QT interval (cause an abnormal heart rhythm) What if I miss a dose? If you miss a dose, take it as soon as you can. If it is almost time for your next dose, take only that dose. Do not take double or extra doses. Where should I keep my medicine? Keep out of the reach of children. Store between 2 and 30 degrees C (36 and 86 degrees F). Throw away any unused medicine after the expiration date. What should I tell my health care provider before I take this medicine? They need to know if you have any of these conditions: heart disease history of irregular heartbeat liver disease low levels of magnesium or potassium in the blood an unusual or allergic reaction to ondansetron, granisetron, other medicines, foods, dyes, or preservatives or trying to get breast-feeding What should I watch for while using this medicine? Check with your doctor or health daycare assistant as soon as you can if you have any sign of an allergic reaction. Sucralfate Oral suspension What is this medicine? SUCRALFATE (PAIGE floridalma fate) helps to treat ulcers of the intestine. How should I use this medicine? Take this medicine by mouth with a glass of water. Follow the directions on the prescription label. Shake well before using. Use a specially marked spoon or container to measure your medicine. Ask your pharmacist if you do not have one. Household spoons are not accurate. This medicine works best if you take it on an empty stomach, 1 hour before meals. Take your doses at regular intervals. Do not take your medicine more often than directed. Do not stop taking except on your doctor's advice. Talk to your automatic centrifugal station operator regarding the use of this medicine in children. Special care may be needed. What side effects may I notice from receiving this medicine? Side effects that you should report to your doctor or health daycare assistant as soon as possible: allergic reactions like skin rash, itching or hives, swelling of the face, lips, or tongue difficulty breathing Side effects that usually do not require medical attention (report to your doctor or health daycare assistant if they continue or are bothersome): back pain constipation drowsy, dizzy dry mouth headache stomach upset, gas trouble sleeping What may interact with this medicine? antacid cimetidine digoxin ketoconazole phenytoin quinidine ranitidine some antibiotics like ciprofloxacin, norfloxacin, and ofloxacin theophylline thyroid hormones warfarin What if I miss a dose? If you miss a dose, take it as soon as you can. If it is almost time for your next dose, take only that dose. Do not take double or extra doses. Where should I keep my medicine? Keep out of the reach of children. Store at room temperature between 20 and 25 degrees C (68 and 77 degrees F). Keep container tightly closed. Throw away any unused medicine after the expiration date. What should I tell my health care provider before I take this medicine? They need to know if you have any of these conditions: kidney disease an unusual or allergic reaction to sucralfate, other medicines, foods, dyes, or preservatives or trying to get breast-feeding What should I watch for while using this medicine? Visit your doctor or health daycare assistant for regular check ups. Let your doctor know if your symptoms do not improve or if you feel worse. Antacids should not be taken within one half hour before or after this medicine. Omeprazole Magnesium Gastro-resistant tablet What is this medicine? OMEPRAZOLE (oh ME pray zol) prevents the production of acid in the stomach. It is used to treat the symptoms of heartburn. You can buy this medicine without a prescription. This product is not for long-term use, unless otherwise directed by your doctor or health daycare assistant. How should I use this medicine? Take this medicine by mouth. Follow the directions on the product label. If you are taking this medicine without a prescription, take one tablet every day. Do not use for longer than 14 days or repeat a course of treatment more often than every 4 months unless directed by a doctor or healthcare professional. Take your dose at regular intervals every 24 hours. Swallow the tablet whole with a drink of water. Do not crush, break or chew. This medicine works best if taken on an empty stomach 30 minutes before breakfast. If you are using this medicine with the prescription of your doctor or healthcare professional, follow the directions you were given. Do not take your medicine more often than directed. Talk to your automatic centrifugal station operator regarding the use of this medicine in children. Special care may be needed. What side effects may I notice from receiving this medicine? Side effects that you should report to your doctor or health daycare assistant as soon as possible: allergic reactions like skin rash, itching or hives, swelling of the face, lips, or tongue bone, muscle or joint pain breathing problems chest pain or chest tightness dark yellow or brown urine diarrhea dizziness fast, irregular heartbeat feeling faint or lightheaded fever or sore throat muscle spasm palpitations redness, blistering, peeling or loosening of the skin, including inside the mouth seizures tremors unusual bleeding or bruising unusually weak or tired yellowing of the eyes or skin Side effects that usually do not require medical attention (Report these to your doctor or health daycare assistant if they continue or are bothersome.): constipation dry mouth headache loose stools nausea What may interact with this medicine? Do not take this medicine with any of the following medications: atazanavir clopidogrel nelfinavir This medicine may also interact with the following medications: ampicillin certain medicines for anxiety or sleep certain medicines that treat or prevent blood clots like warfarin cyclosporine diazepam digoxin disulfiram iron salts phenytoin prescription medicine for fungal or yeast infection like itraconazole, ketoconazole, voriconazole saquinavir tacrolimus What if I miss a dose? If you miss a dose, take it as soon as you can. If it is almost time for your next dose, take only that dose. Do not take double or extra doses. Where should I keep my medicine? Keep out of the reach of children. Store at room temperature between 20 and 25 degrees C (68 and 77 degrees F). Protect from light and moisture. Throw away any unused medicine after the expiration date. What should I tell my health care provider before I take this medicine? They need to know if you have any of these conditions: black or bloody stools chest pain difficulty swallowing have had heartburn for over 3 months have heartburn with dizziness, lightheadedness or sweating liver disease stomach pain unexplained weight loss vomiting with blood wheezing an unusual or allergic reaction to omeprazole, other medicines, foods, dyes, or preservatives or trying to get breast-feeding What should I watch for while using this medicine? It can take several days before your heartburn gets better. Check with your doctor or health daycare assistant if your condition does not start to get better, or if it gets worse. Do not treat diarrhea with over the counter products. Contact your doctor if you have diarrhea that lasts more than 2 days or if it is severe and watery. Do not treat yourself for heartburn with this medicine for more than 14 days in a row. You should only use this medicine for a 2-week treatment period once every 4 months. If your symptoms return shortly after your therapy is complete, or within the 4 month time frame, call your doctor or health daycare assistant. You have been given the following additional information: GERD (Adult) Diet, [place] (Adult) Ondansetron Oral disintegrating tablet Sucralfate Oral suspension Omeprazole Magnesium Gastro-resistant tablet No strenuous activity. Rest. (Electronically signed by Alex Silva MD 10/13/2016 20:50)
--- NOTE | 2016-10-13 20:50 | ED MAR SUMMARY ---
..... Medication Administration Record [facility] [address] [place] [address] Patient: MAYA COLMENARES Visit ID: [id number] 76y, F Weight: 47.6 kg Height/Length: 61 in BMI: 19.8 ALLERGIES: None Given 10:10 10/11/2016 Jannet Gorman, R.N. Medication Administered: GI COCKTAIL WHITE [PO] (SIMETHICONE), Dose: 30 mL PO. Medication Ordered: GI Cocktail WHITE PO 50 mL (NOW). Given 11:10/11/2016 Jannet Gorman, R.N. Medication Administered: CARAFATE [PO] (SUCRALFATE), Dose: 2 gm PO. Medication Ordered: Carafate PO 20 ml (NOW). Given 11:10/11/2016 Jannet Gorman, R.N. Medication Administered: PROTONIX [PO] (PANTOPRAZOLE SODIUM), Dose: 40 mg PO. Medication Ordered: Protonix PO 40 mg (NOW).
--- NOTE | 2016-10-13 20:50 | ED DISCHARGE INSTRUCTIONS ---
Patient: MAYA COLMENARES General Instructions [facility] VisitID: [id number] [place] [address] 76y, F Registration Date/Time: 10/11/2016 Probable chest pain of GI origin (due to esophageal reflux and esophagitis). INSTRUCTIONS No strenuous activity. Rest. Avoid alcohol and NSAIDS. Examples of NSAIDS include aspirin, ibuprofen (Advil) and naproxen (Aleve). Avoid spicy foods. Other diet: No caffeine. No alcohol. Warnings: Further evaluation is necessary. GENERAL WARNINGS: Return or contact your physician immediately if your condition worsens or changes unexpectedly, if not improving as expected, or if other problems arise. Prescription Medications: Zofran (orally disintegrating tablets) 4 mg: take 1 orally every 6 hours as needed for nausea. Dispense ten (10). No refill. Substitution is permissible. Carafate Liquid 1g/10 mL: take two (2) teaspoons orally four times daily (30 minutes before meals and at bedtime) for 10 days. Dispense sufficient quantity. No refill. Substitution is permissible. Prilosec 40 mg capsules: take 1 capsule orally every day for 10 days. Dispense ten (10). No refill. Substitution is permissible. Follow-up: Follow up with your doctor in one week. Call for an appointment. Understanding of the discharge instructions verbalized by patient. Discharge instructions reviewed with and understanding was verbalized by neighbor. ADDITIONAL INFORMATION GERD (Adult) The esophagus is a tube that carries food from the mouth to the stomach. A valve at the lower end of the esophagus prevents stomach acid from flowing upward. If this valve does not work properly, acid from the stomach enters the esophagus. If this occurs over and over, the acid will injure the lining of the esophagus. This condition is called GERD (gastroesophageal reflux disease) or acid reflux. When stomach acid flows upward into the esophagus, it causes burning, pressure or sharp pain in the upper abdomen or mid to lower chest. The pain can spread to the neck, back, or shoulder, similar to heart pain (angina). There may be belching, an acid taste in the back of the throat, chronic cough, or sore throat or hoarseness. GERD symptoms often occur during the day after a big meal, but it can also occur at night when lying down. Smoking,as well as drinking alcohol, increases the risk of GERD. GERD is a chronic condition. Once it begins, it is often lifelong. Treatment includes changes in eating habits and the use of acid vernon medications to decrease the amount of acid in the stomach. Symptoms often improve with treatment, but if treatment is stopped, the symptoms usually return after a few months. So most persons with GERD will need to continue treatment. Home Care: Take the prescribed acid vernon medication for the full course of treatment even if you begin to feel better sooner. This medication can take up to several days to fully control your symptoms. If you cant afford the prescribed medication, you can try [id number]-[id number]-ztelsfo acid blockers, such as Pepcid AC, Tagamet, Zantac, or Aciphex. If these do not relieve your symptoms, a stronger acid-vernon can be tried, such as Prilosec OTC. You can use antacids, such as Tums, Rolaids, Mylanta, or Maalox, for pain. This will be useful the first few days after starting acid blockers when the blockers havent started working yet. Follow the directions on the label. Liquid antacids may work better than tablets. Note that antacids can interfere with absorption of certain medications. Specifically, do not take Tagamet (cimetidine), Zantac (ranitidine), or Carafate (sucralfate) within 1 hour of taking an antacid. Talk with your pharmacist if you have any questions. Limit or avoid fatty, fried, and spicy foods, as well as coffee, chocolate, mint, and foods with high acid content such as tomatoes and citrus fruit and juices (orange, grapefruit, lemon). Avoid alcohol and smoking. Dont eat large meals, especially at night. Frequent, smaller meals are best. Do not lie down right after eating. And dont eat anything 3 hours before going to bed. If you are overweight, losing weight will reduce symptoms. Women should not wear corsets or girdles because this increases pressure on the stomach and worsens reflux. If your symptoms occur during sleep, use a foam wedge to elevate your upper body (not just your head.) Or, place 4" blocks under the head of your bed. Follow Up with your doctor or as advised by our staff. Further testing may be needed. If you do not begin to improve over the next 4 days, contact your doctor. If you had an x-ray, CT scan, or ECG (electrocardiogram), it will be reviewed by a specialist. Youll be notified of any new findings that affect your care. Get Prompt Medical Attention if any of the following occur: Stomach pain gets worse or moves to the lower right abdomen (appendix area) Chest pain appears or gets worse, or spreads to the back, neck, shoulder, or arm Frequent vomiting (cant keep down liquids) Blood in the stool or vomit (red or black in color) Feeling weak or dizzy, fainting, or trouble breathing Fever of 100.4F (38C) or higher, or as directed by your healthcare provider Shelby Diet A bland diet is used for patients with an upset stomach. It consists of foods that are mild and easy to digest. It is better to eat small frequent meals rather than three large meals a day. BEVERAGES OK: Fruit juices, non-caffeinated teas and coffee, non-carbonated means AVOID: Carbonated beverage, caffeinated tea and coffee, all alcoholic beverages BREAD OK: Refined white, wheat or rye bread, michael or soda crackers, Rosa Elena toast, plain rolls, bagels AVOID: Whole-grain bread CEREAL OK: Refined cereals: cooked or ready to eat AVOID: Whole grain cereals and granola, or those containing bran, seeds or nuts DESSERTS OK: Peanut butter and all others except those to "avoid" AVOID: Chocolate, cocoa, coconut, popcorn, nuts, seeds, jam, marmalade FRUITS OK: Canned, cooked, frozen or fresh fruits without seeds or tough skin AVOID: Olives, skin and seeds of fruit MEATS OK: All fresh or preserved meat, fish and fowl AVOID: Any that are prepared with those spices to "avoid" CHEESE & EGGS OK: Eggs, cottage cheese, cream cheese, other cheeses AVOID: All cheeses made with those spices to "avoid" POTATOES & PASTA OK: Potato, rice, macaroni, noodles, spaghetti AVOID: None SOUPS OK: All soups without heavy seasoning AVOID: Soups made with those spices to "avoid" VEGETABLES OK: Canned, cooked, fresh or frozen mildly flavored vegetables without seeds, skins or coarse fiber AVOID: Vegetables prepared with those spices to "avoid"; skin and seeds of vegetables and those with coarse fiber SPICES OK: Salt, lemon and ch[place] juice, vinegar, all extracts, christian, cinnamon, thyme, mace, allspice, paprika AVOID: [place] powder, cloves, pepper, seed spices, garlic, gravy pickles, highly seasoned salad dressings Ondansetron Oral disintegrating tablet What is this medicine? ONDANSETRON (on KAREN se eloy) is used to treat nausea and vomiting caused by chemotherapy. It is also used to prevent or treat nausea and vomiting after surgery. How should I use this medicine? These tablets are made to dissolve in the mouth. Do not try to push the tablet through the foil backing. With dry hands, peel away the foil backing and gently remove the tablet. Place the tablet in the mouth and allow it to dissolve, then swallow. While you may take these tablets with water, it is not necessary to do so. Talk to your auto body mechanic regarding the use of this medicine in children. Special care may be needed. What side effects may I notice from receiving this medicine? Side effects that you should report to your doctor or health geriatric care manager as soon as possible: allergic reactions like skin rash, itching or hives, swelling of the face, lips, or tongue breathing problems dizziness fast or irregular heartbeat feeling faint or lightheaded, falls fever and chills swelling of the hands and feet tightness in the chest Side effects that usually do not require medical attention (report to your doctor or health geriatric care manager if they continue or are bothersome): constipation or diarrhea headache What may interact with this medicine? Do not take this medicine with any of the following medications: -apomorphine -cisapride -dofetilide -dronedarone -pimozide -thioridazine -ziprasidone This medicine may also interact with the following medications: -carbamazepine -phenytoin -rifampicin -tramadol -other medicines that prolong the QT interval (cause an abnormal heart rhythm) What if I miss a dose? If you miss a dose, take it as soon as you can. If it is almost time for your next dose, take only that dose. Do not take double or extra doses. Where should I keep my medicine? Keep out of the reach of children. Store between 2 and 30 degrees C (36 and 86 degrees F). Throw away any unused medicine after the expiration date. What should I tell my health care provider before I take this medicine? They need to know if you have any of these conditions: heart disease history of irregular heartbeat liver disease low levels of magnesium or potassium in the blood an unusual or allergic reaction to ondansetron, granisetron, other medicines, foods, dyes, or preservatives or trying to get breast-feeding What should I watch for while using this medicine? Check with your doctor or health geriatric care manager as soon as you can if you have any sign of an allergic reaction. Sucralfate Oral suspension What is this medicine? SUCRALFATE (PAIGE floridalma fate) helps to treat ulcers of the intestine. How should I use this medicine? Take this medicine by mouth with a glass of water. Follow the directions on the prescription label. Shake well before using. Use a specially marked spoon or container to measure your medicine. Ask your pharmacist if you do not have one. Household spoons are not accurate. This medicine works best if you take it on an empty stomach, 1 hour before meals. Take your doses at regular intervals. Do not take your medicine more often than directed. Do not stop taking except on your doctor's advice. Talk to your auto body mechanic regarding the use of this medicine in children. Special care may be needed. What side effects may I notice from receiving this medicine? Side effects that you should report to your doctor or health geriatric care manager as soon as possible: allergic reactions like skin rash, itching or hives, swelling of the face, lips, or tongue difficulty breathing Side effects that usually do not require medical attention (report to your doctor or health geriatric care manager if they continue or are bothersome): back pain constipation drowsy, dizzy dry mouth headache stomach upset, gas trouble sleeping What may interact with this medicine? antacid cimetidine digoxin ketoconazole phenytoin quinidine ranitidine some antibiotics like ciprofloxacin, norfloxacin, and ofloxacin theophylline thyroid hormones warfarin What if I miss a dose? If you miss a dose, take it as soon as you can. If it is almost time for your next dose, take only that dose. Do not take double or extra doses. Where should I keep my medicine? Keep out of the reach of children. Store at room temperature between 20 and 25 degrees C (68 and 77 degrees F). Keep container tightly closed. Throw away any unused medicine after the expiration date. What should I tell my health care provider before I take this medicine? They need to know if you have any of these conditions: kidney disease an unusual or allergic reaction to sucralfate, other medicines, foods, dyes, or preservatives or trying to get breast-feeding What should I watch for while using this medicine? Visit your doctor or health geriatric care manager for regular check ups. Let your doctor know if your symptoms do not improve or if you feel worse. Antacids should not be taken within one half hour before or after this medicine. Omeprazole Magnesium Gastro-resistant tablet What is this medicine? OMEPRAZOLE (oh ME pray zol) prevents the production of acid in the stomach. It is used to treat the symptoms of heartburn. You can buy this medicine without a prescription. This product is not for long-term use, unless otherwise directed by your doctor or health geriatric care manager. How should I use this medicine? Take this medicine by mouth. Follow the directions on the product label. If you are taking this medicine without a prescription, take one tablet every day. Do not use for longer than 14 days or repeat a course of treatment more often than every 4 months unless directed by a doctor or healthcare professional. Take your dose at regular intervals every 24 hours. Swallow the tablet whole with a drink of water. Do not crush, break or chew. This medicine works best if taken on an empty stomach 30 minutes before breakfast. If you are using this medicine with the prescription of your doctor or healthcare professional, follow the directions you were given. Do not take your medicine more often than directed. Talk to your auto body mechanic regarding the use of this medicine in children. Special care may be needed. What side effects may I notice from receiving this medicine? Side effects that you should report to your doctor or health geriatric care manager as soon as possible: allergic reactions like skin rash, itching or hives, swelling of the face, lips, or tongue bone, muscle or joint pain breathing problems chest pain or chest tightness dark yellow or brown urine diarrhea dizziness fast, irregular heartbeat feeling faint or lightheaded fever or sore throat muscle spasm palpitations redness, blistering, peeling or loosening of the skin, including inside the mouth seizures tremors unusual bleeding or bruising unusually weak or tired yellowing of the eyes or skin Side effects that usually do not require medical attention (Report these to your doctor or health geriatric care manager if they continue or are bothersome.): constipation dry mouth headache loose stools nausea What may interact with this medicine? Do not take this medicine with any of the following medications: atazanavir clopidogrel nelfinavir This medicine may also interact with the following medications: ampicillin certain medicines for anxiety or sleep certain medicines that treat or prevent blood clots like warfarin cyclosporine diazepam digoxin disulfiram iron salts phenytoin prescription medicine for fungal or yeast infection like itraconazole, ketoconazole, voriconazole saquinavir tacrolimus What if I miss a dose? If you miss a dose, take it as soon as you can. If it is almost time for your next dose, take only that dose. Do not take double or extra doses. Where should I keep my medicine? Keep out of the reach of children. Store at room temperature between 20 and 25 degrees C (68 and 77 degrees F). Protect from light and moisture. Throw away any unused medicine after the expiration date. What should I tell my health care provider before I take this medicine? They need to know if you have any of these conditions: black or bloody stools chest pain difficulty swallowing have had heartburn for over 3 months have heartburn with dizziness, lightheadedness or sweating liver disease stomach pain unexplained weight loss vomiting with blood wheezing an unusual or allergic reaction to omeprazole, other medicines, foods, dyes, or preservatives or trying to get breast-feeding What should I watch for while using this medicine? It can take several days before your heartburn gets better. Check with your doctor or health geriatric care manager if your condition does not start to get better, or if it gets worse. Do not treat diarrhea with over the counter products. Contact your doctor if you have diarrhea that lasts more than 2 days or if it is severe and watery. Do not treat yourself for heartburn with this medicine for more than 14 days in a row. You should only use this medicine for a 2-week treatment period once every 4 months. If your symptoms return shortly after your therapy is complete, or within the 4 month time frame, call your doctor or health geriatric care manager. You have been given the following additional information: GERD (Adult) Diet, Shelby (Adult) Ondansetron Oral disintegrating tablet Sucralfate Oral suspension Omeprazole Magnesium Gastro-resistant tablet No strenuous activity. Rest. (Electronically signed by Alex Silva MD 10/13/2016 20:50)
--- NOTE | 2016-10-13 20:50 | ED MED RECONCILIATION SUMMARY ---
Patient: MAYA COLMENARES Medication Reconciliation Report [facility] VisitID: [id number] [address] [place] [address] 76y, F Registration Date/Time: 10/11/2016 Weight: 47.6 kg Height/Length: 61 in. BMI: 19.8 ALLERGIES: None The patient's Home Medications are listed below: THE FOLLOWING MEDICATIONS NEED TO BE RECONCILED: Carbidopa-Levodopa Oral Fluconazole Oral Plavix Primidone Oral Zoloft Oral The source(s) of the original Home Medication information: Not obtained. The following Medications were given to the patient in the Emergency Department: GI COCKTAIL WHITE [PO] PO 30 mL, administered: 10/11/2016 10:10:00 AM Carafate [PO] PO 2 gm, administered: 10/11/2016 11:23:00 AM Protonix [PO] PO 40 mg, administered: 10/11/2016 11:23:00 AM The following Medications were prescribed to the patient: Zofran (orally disintegrating tablets) 4 mg: take 1 orally every 6 hours as needed for nausea. Dispense ten (10). No refill. Substitution is permissible. -- Alex Silva MD Carafate Liquid 1g/10 mL: take two (2) teaspoons orally four times daily (30 minutes before meals and at bedtime) for 10 days. Dispense sufficient quantity. No refill. Substitution is permissible. -- Alex Silva MD Prilosec 40 mg capsules: take 1 capsule orally every day for 10 days. Dispense ten (10). No refill. Substitution is permissible. -- Alex Silva MD
== END 2016-10-11 13:30 | disposition home or self-care (01) ==
LOC: ED SRH 08:31
DX: K21.0 Gastro-esophageal reflux disease with esophagitis (principal); R07.9 Chest pain, unspecified; G20 Parkinson's disease; Z79.02 Long term (current) use of antithrombotics/antiplatelets; Z79.899 Other long term (current) drug therapy
CPT/HCPCS: 90074; 90100; 90616; 91320; 91556; 92235; 92530; 92610; 92720; 95059

== ENCOUNTER 2016-11-24 18:31 | Inpatient (IN) | payer OTHER ==
[~2016-11-24] VITALS: Ht 152.4 cm; Wt 56.7 kg
--- NOTE | 2016-11-24 19:50 | ED ORDER SUMMARY ---
..... Patient: MAYA COLMENARES OrderSheet [facility] VisitID: [id number] [place] [address] 76y, F Registration Date/Time: 11/24/2016 ORDER SHEET Weight: 48.5 kg (stated) Allergies: None GENERAL ORDERS: Hip 2V Right w AP Pelvis Urgent (18:45 11/24/2016 Bandar Sanchez) (Ack 18:48 NHouse ER Tech1) (20:14 Taina) CBC w Diff Urgent (18:46 11/24/2016 Bandar Sanchez) (Ack 18:48 NHouse ER Tech1) (19:25 ALawrence ER Tech1) CMP Urgent (18:46 11/24/2016 Bandar Sanchez) (Ack 18:48 NHouse ER Tech1) (19:25 ALawrence ER Tech1) PT with INR Urgent (18:46 11/24/2016 Bandar Sanchez) (Ack 18:48 NHouse ER Tech1) (19:25 ALawrence ER Tech1) PTT Urgent (18:46 11/24/2016 Bandar Sanchez) (Ack 18:48 NHouse ER Tech1) (19:25 ALawrence ER Tech1) NPO (18:46 11/24/2016 Bandar Sanchez) (18:48 NHouse ER Tech1) Chest 1V Urgent (19:32 11/24/2016 ALawrence ER Tech1 verbal order read back to Bandar Sanchez) (Ack 19:33 ALawrence ER Tech1) (20:14 Taina) EKG - ER Stat (21:30 11/24/2016 ALawrence ER Tech1 verbal order read back to Bandar Sanchez) (Ack 21:30 ALawrence ER Tech1) (21:44 ALawrence ER Tech1) Type & Screen Urgent (21:31 11/24/2016 ALawrence ER Tech1 verbal order read back to Bandar Sanchez) (Ack 21:33 ALawrence ER Tech1) (21:36 ALawrence ER Tech1) MEDICATION ORDERS: IV FLUIDS: Morphine IV 4 mg (HIGH ALERT MEDICATION, NOW) (18:45 11/24/2016 Bandar Sanchez) (Ack 18:53 SRoberts R.N.) (19:17 SRoberts R.N.) IV Saline Lock (18:46 11/24/2016 Bandar Sanchez) (Ack 18:53 SRoberts R.N.) (19:16 SRoberts R.N.) Morphine IV 4 mg (once now. may repeat once in 15 minutes for pain > 5/10) (20:13 11/24/2016 Bandar Sanchez) (Ack 20:23 SRoberts R.N.) (20:59 SRoberts R.N.) ORDER SHEET NOTES: Reason for Study: Fall Reason for Study: Fall Reason for Study: Fall [Electronically signed by Patti Martinez R.N. (16:58 11/25/2016)] [Electronically signed by Joshua Acevedo Dr. (15:34 11/26/2016)] [Electronically locked/signed by Patti Martinez R.N. (16:58 11/25/2016)]
--- NOTE | 2016-11-24 19:50 | ED ORDER SUMMARY ---
..... Patient: MAYA COLMENARES OrderSheet [facility] VisitID: [id number] [place] [address] 76y, F Registration Date/Time: 11/24/2016 ORDER SHEET Weight: 48.5 kg (stated) Allergies: None GENERAL ORDERS: Hip 2V Right w AP Pelvis Urgent (18:45 11/24/2016 Bandar Sanchez) (Ack 18:48 NHouse ER Tech1) (20:14 Taina) CBC w Diff Urgent (18:46 11/24/2016 Bandar Sanchez) (Ack 18:48 NHouse ER Tech1) (19:25 ALawrence ER Tech1) CMP Urgent (18:46 11/24/2016 Bandar Sanchez) (Ack 18:48 NHouse ER Tech1) (19:25 ALawrence ER Tech1) PT with INR Urgent (18:46 11/24/2016 Bandar Sanchez) (Ack 18:48 NHouse ER Tech1) (19:25 ALawrence ER Tech1) PTT Urgent (18:46 11/24/2016 Bandar Sanchez) (Ack 18:48 NHouse ER Tech1) (19:25 ALawrence ER Tech1) NPO (18:46 11/24/2016 Bandar Sanchez) (18:48 NHouse ER Tech1) Chest 1V Urgent (19:32 11/24/2016 ALawrence ER Tech1 verbal order read back to Bandar Sanchez) (Ack 19:33 ALawrence ER Tech1) (20:14 Taina) EKG - ER Stat (21:30 11/24/2016 ALawrence ER Tech1 verbal order read back to Bandar Sanchez) (Ack 21:30 ALawrence ER Tech1) (21:44 ALawrence ER Tech1) Type & Screen Urgent (21:31 11/24/2016 ALawrence ER Tech1 verbal order read back to Bandar Sanchez) (Ack 21:33 ALawrence ER Tech1) (21:36 ALawrence ER Tech1) MEDICATION ORDERS: IV FLUIDS: Morphine IV 4 mg (HIGH ALERT MEDICATION, NOW) (18:45 11/24/2016 Bandar Sanchez) (Ack 18:53 SRoberts R.N.) (19:17 SRoberts R.N.) IV Saline Lock (18:46 11/24/2016 Bandar Sanchez) (Ack 18:53 SRoberts R.N.) (19:16 SRoberts R.N.) Morphine IV 4 mg (once now. may repeat once in 15 minutes for pain > 5/10) (20:13 11/24/2016 Bandar Sanchez) (Ack 20:23 SRoberts R.N.) (20:59 SRoberts R.N.) ORDER SHEET NOTES: Reason for Study: Fall Reason for Study: Fall Reason for Study: Fall [Electronically signed by Patti Martinez R.N. (16:58 11/25/2016)] [Electronically signed by Joshua Acevedo Dr. (15:34 11/26/2016)] [Electronically locked/signed by Patti Martinez R.N. (16:58 11/25/2016)]
--- NOTE | 2016-11-24 19:50 | ED NURSING NOTES ---
Clinical Report - Nurses [facility] [address] [place] [address] 11/24/2016 18:33 [id number] TRI[facility] Triage time 18:44. Acuity: LEVEL 3. Chief Complaint: INJURY TO THE RIGHT HIP. Alert. SEPSIS SCREEN: Sepsis Screen: negative. Negative (no infection suspected/documented). HUNTER COMA SCORE: [place] Coma Scale: 15- eyes open spontaneously (4); best verbal response- oriented x 4 (5); best motor response- obeys commands (6). --18:52 Megan Galvan R.N. 18:44 11/24/16. BP: 154/62. HR: 90. RR: 18. O2 saturation: 95%. Temp: 98.7 F. Pain level now: 04/01. --18:52 Megan Galvan R.N. Weight: 48.5 kg stated. Height/Length: 60 inches Per Patient. BMI: 20.9. --18:49 Megan Galvan R.N. Medications Carbidopa-Levodopa Oral. Primidone Oral. Zoloft Oral. --18:51 Megan Galvan R.N. Vitamin E. --18:51 Megan Galvan R.N. Statins Support Oral. --18:51 Megan Galvan R.N. Medication/allergy information source: the patient. --18:52 Megan Galvan R.N. Allergies None. --18:51 Megan Galvan R.N. History Arrived by EMS. Historian: patient and family. Accompanied by family. Primary physician (batool). Mechanism of injury: fell off a chair (Sliding out of a caraballo at a resturant.). She has had trouble walking. The patient has been unable to walk and stand. She has had similar symptoms previously. Treatment DIRECTOR INFORMATICS: BP: 118 / 74. HR: 82. RR: 18. O2 saturation: 94 % room air. PAST MEDICAL HX: Tetanus status: unknown. The patient is post-menopausal. SOCIAL HX: Smoker- current status unknown. No alcohol use or drug use. ABUSE ASSESSMENT: No report of abuse. FALL RISK ASSESSMENT: Fall risk assessment completed. No fall risk identified. NUTRITIONAL RISK ASSESSMENT: The nutritional risk assessment revealed no deficiencies. FUNCTIONAL ASSESSMENT: Functional assessment: no impairments noted. LEARNING NEEDS ASSESSMENT: The learning needs assessment revealed no barriers. SKIN INTEGRITY ASSESSMENT: Skin integrity risk assessment completed. No skin integrity risk identified. HUNTER COMA SCORE: [place] Coma Scale: 15- eyes open spontaneously (4); best verbal response- oriented x 4 (5); best motor response- obeys commands (6). --18:52 Megan Galvan R.N. PROBLEMS: Depression. TIA - Transient Ischemic Attack. CVA - Cerebrovascular Accident. Parkinson's Disease. --18:47 Megan Galvan R.N. Chest Pain of GI Origin [RuleOut]. --18:47 Megan Galvan R.N. Interventions ID band on patient. To room. --18:52 Megan Galvan R.N. PHYSICAL ASSESSMENT To room via stretcher. Patient gowned. GENERAL / NEURO / PSYCH: Oriented X 4. Appears in pain and anxious. CVS: Capillary refill is greater than 2 seconds. EXTREMITIES: Limited ROM present. She was unable to bear weight. Right hip: tenderness. Limited ROM. SKIN: Skin intact. Skin is warm and dry. --18:52 Megan Galvan R.N. NURSING PROGRESS NOTES Cold pack applied. Extremity elevated. Patient gowned. Two patient identifiers checked. Call light placed in reach. Side rails up x 2. Bed placed in lowest position. Brakes of bed on. Patient ready for evaluation. --18:53 Megan Galvan R.N. 19:16 11/24/2016 Site #1 started via IV in the right forearm with an 22g angiocath, with aseptic technique and good blood return; one attempt. Saline lock flushed with 10 mL saline (Lab called for draw.). --19:16 Megan Galvan R.N. 19:17 11/24/2016 Morphine IVP 4 mg given over 1 minute(s) via site #1. Allergies verified, confirmed 5 rights and sedative warning given to the patient and patient's family. IV patency established. IV site checked: no pain, redness, or swelling. IV flushed thoroughly pre- and post-medication administration. IVP given by RN. --19:17 Megan Galvan R.N. 20:24 11/24/16. BP: 145/76. HR: 78. RR: 18. O2 saturation: 97% on room air. Pain level now: 11/30. --20:35 Megan Galvan R.N. 20:30 11/24/2016 Morphine IVP 4 mg given over 1 minute(s) via site #1. Allergies verified, confirmed 5 rights and sedative warning given to the patient and patient's family. IV patency established. IV site checked: no pain, redness, or swelling. IV flushed thoroughly pre- and post-medication administration. IVP given by RN. --20:59 Megan Galvan R.N. ( Ortho provider at the bedside.). --21:00 Megan Galvan R.N. Family at bedside. --21:00 Megan Galvan R.N. EKG time: (21:43). EKG was performed by a tech and shown to the ED physician. --22:06 [facility] 14 fr omalley catheter placed. Reason for indwelling catheter: requires prolonged immobilization and pre-operatively. During procedure hand hygiene observed and sterile equipment and aseptic technique used. Return of 200 mL yellow-colored clear urine; attached to bedside drainage bag positioned below the bladder. She tolerated procedure well (UA sent to the lab.). --22:19 Megan Galvan R.N. 22:22 11/24/16. Care transferred and report given (KELVIN Armstrong). --22:22 Megan Galvan R.N. Care transferred and report given (Brenton WARREN). --23:33 Patti Martinez R.N. 23:32 11/24/16. BP: 117/56. HR: 84. RR: 14. O2 saturation: 91%. Pain level now: 01/30. --23:33 Patti Martinez R.N. DISPOSITION / DISCHARGE Report was given to a nurse via a phone call. Report included patient's care, treatment, medications, reviewed medication reconcilliation, and condition (including any recent changes or anticipated changes). All questions were answered. Report was acknowledged. (to Brenton WARREN). --23:27 Patti Martinez R.N. 23:30 11/24/16. BP: 117/56. HR: 84. RR: 14. O2 saturation: 91%. Pain level now: 01/30. --23:32 Patti Martinez R.N. Locked/Released at 11/25/2016 16:58 by Patti Martinez R.N.
--- NOTE | 2016-11-24 19:50 | ED NURSING NOTES ---
Clinical Report - Nurses [facility] [address] [place] [place] [address] 11/24/2016 18:33 [id number] Triage time 18:44. Acuity: LEVEL 3. Chief Complaint: INJURY TO THE RIGHT HIP. Alert. SEPSIS SCREEN: Sepsis Screen: negative. Negative (no infection suspected/documented). HUNTER COMA SCORE: [place] Coma Scale: 15- eyes open spontaneously (4); best verbal response- oriented x 4 (5); best motor response- obeys commands (6). --18:52 Megan Galvan R.N. 18:44 11/24/16. BP: 154/62. HR: 90. RR: 18. O2 saturation: 95%. Temp: 98.7 F. Pain level now: 04/01. --18:52 Megan Galvan R.N. Weight: 48.5 kg stated. Height/Length: 60 inches Per Patient. BMI: 20.9. --18:49 Megan Galvan R.N. Medications Carbidopa-Levodopa Oral. Primidone Oral. Zoloft Oral. --18:51 Megan Galvan R.N. Vitamin E. --18:51 Megan Galvan R.N. Statins Support Oral. --18:51 Megan Galvan R.N. Medication/allergy information source: the patient. --18:52 Megan Galvan R.N. Allergies None. --18:51 Megan Galvan R.N. History Arrived by EMS. Historian: patient and family. Accompanied by family. Primary physician (batool). Mechanism of injury: fell off a chair (Sliding out of a caraballo at a resturant.). She has had trouble walking. The patient has been unable to walk and stand. She has had similar symptoms previously. 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 HR: 82. RR: 18. O2 saturation: 94 % room air. PAST MEDICAL HX: Tetanus status: unknown. The patient is post-menopausal. SOCIAL HX: Smoker- current status unknown. No alcohol use or drug use. ABUSE ASSESSMENT: No report of abuse. FALL RISK ASSESSMENT: Fall risk assessment completed. No fall risk identified. NUTRITIONAL RISK ASSESSMENT: The nutritional risk assessment revealed no deficiencies. FUNCTIONAL ASSESSMENT: Functional assessment: no impairments noted. LEARNING NEEDS ASSESSMENT: The learning needs assessment revealed no barriers. SKIN INTEGRITY ASSESSMENT: Skin integrity risk assessment completed. No skin integrity risk identified. HUNTER COMA SCORE: [place] Coma Scale: 15- eyes open spontaneously (4); best verbal response- oriented x 4 (5); best motor response- obeys commands (6). --18:52 Megan Galvan R.N. PROBLEMS: Depression. TIA - Transient Ischemic Attack. CVA - Cerebrovascular Accident. Parkinson's Disease. --18:47 Megan Galvan R.N. Chest Pain of GI Origin [RuleOut]. --18:47 Megan Galvan R.N. Interventions ID band on patient. To room. --18:52 Megan Galvan R.N. PHYSICAL ASSESSMENT To room via stretcher. Patient gowned. GENERAL / NEURO / PSYCH: Oriented X 4. Appears in pain and anxious. CVS: Capillary refill is greater than 2 seconds. EXTREMITIES: Limited ROM present. She was unable to bear weight. Right hip: tenderness. Limited ROM. SKIN: Skin intact. Skin is warm and dry. --18:52 Megan Galvan R.N. NURSING PROGRESS NOTES Cold pack applied. Extremity elevated. Patient gowned. Two patient identifiers checked. Call light placed in reach. Side rails up x 2. Bed placed in lowest position. Brakes of bed on. Patient ready for evaluation. --18:53 Megan Galvan R.N. 19:16 11/24/2016 Site #1 started via IV in the right forearm with an 22g angiocath, with aseptic technique and good blood return; one attempt. Saline lock flushed with 10 mL saline (Lab called for draw.). --19:16 Megan Galvan R.N. 19:17 11/24/2016 Morphine IVP 4 mg given over 1 minute(s) via site #1. Allergies verified, confirmed 5 rights and sedative warning given to the patient and patient's family. IV patency established. IV site checked: no pain, redness, or swelling. IV flushed thoroughly pre- and post-medication administration. IVP given by RN. --19:17 Megan Galvan R.N. 20:24 11/24/16. BP: 145/76. HR: 78. RR: 18. O2 saturation: 97% on room air. Pain level now: 11/30. --20:35 Megan Galvan R.N. 20:30 11/24/2016 Morphine IVP 4 mg given over 1 minute(s) via site #1. Allergies verified, confirmed 5 rights and sedative warning given to the patient and patient's family. IV patency established. IV site checked: no pain, redness, or swelling. IV flushed thoroughly pre- and post-medication administration. IVP given by RN. --20:59 Megan Galvan R.N. ( Ortho provider at the bedside.). --21:00 Megan Galvan R.N. Family at bedside. --21:00 Megan Galvan R.N. EKG time: (21:43). EKG was performed by a tech and shown to the ED physician. --22:06 [facility] 14 fr omalley catheter placed. Reason for indwelling catheter: requires prolonged immobilization and pre-operatively. During procedure hand hygiene observed and sterile equipment and aseptic technique used. Return of 200 mL yellow-colored clear urine; attached to bedside drainage bag positioned below the bladder. She tolerated procedure well (UA sent to the lab.). --22:19 Megan Galvan R.N. 22:22 11/24/16. Care transferred and report given (KELVIN Armstrong). --22:22 Megan Galvan R.N. Care transferred and report given (Brenton WARREN). --23:33 Patti Martinez R.N. 23:32 11/24/16. BP: 117/56. HR: 84. RR: 14. O2 saturation: 91%. Pain level now: 01/30. --23:33 Patti Martinez R.N. DISPOSITION / DISCHARGE Report was given to a nurse via a phone call. Report included patient's care, treatment, medications, reviewed medication reconcilliation, and condition (including any recent changes or anticipated changes). All questions were answered. Report was acknowledged. (to Brenton WARREN). --23:27 Patti Martinez R.N. 23:30 11/24/16. BP: 117/56. HR: 84. RR: 14. O2 saturation: 91%. Pain level now: 01/30. --23:32 Patti Martinez R.N. Locked/Released at 11/25/2016 16:58 by Patti Martinez R.N.
--- NOTE | 2016-11-24 20:54 | DIAGNOSTIC IMAGING REPORT ---
PROCEDURE: XR HIP 2VW W W/O AP PELVIS-RT INDICATION: TRAUMA/INJURY TECHNIQUE: AP view of the pelvis and hips with lateral view of the right hip. COMPARISON: None. FINDINGS: RIGHT HIP: Mildly decreased mineralization. Impacted subcapital right femoral neck fracture. Superior impaction of the proximal femur. Mild clockwise rotation of the femoral head within the acetabulum. No femoral acetabular dislocation. PELVIS: Minimally decreased mineralization. No pelvic or left hip fracture visible. Dystrophic probably enthesopathic change at the greater trochanter of the left hip. Soft tissues and bowel gas pattern appear within normal limits. IMPRESSION: 1. Impacted subcapital right femoral neck fracture with varus deformity. 2. Mild demineralization.
--- NOTE | 2016-11-24 20:57 | DIAGNOSTIC IMAGING REPORT ---
PROCEDURE: XR CHEST 1 VIEW INDICATION: Fall, preop right hip fracture. TECHNIQUE: Single view chest. 1938 hours COMPARISON: 10/11/2016 FINDINGS: Normal cardiomediastinal contour and central vasculature. Coarse interstitial markings diffusely. Minor hyperinflation. No dense consolidation, effusion, or pneumothorax. Intact osseous structures. IMPRESSION: 1. Mild chronic coarsening of the interstitial markings with slight hyperinflation suggests asthma/emphysema. Correlate clinically.
--- NOTE | 2016-11-24 23:11 | HISTORY AND PHYSICAL ---
ADMITTED: 11/24/2016 CHIEF COMPLAINT: 1. Pain in the right leg 2. Inability to walk HISTORY OF PRESENT ILLNESS: This 76-year-old woman states that she was at a restaurant and was sliding towards the end of the seat and fell off the end of the seat onto the floor. She was unable to get up and was transported to our hospital emergency department where x-rays were performed showing a subcapital fracture of the hip. She was admitted for pain control and for open reduction or surgical bipolar hip replacement of the right hip. Prior to falling, she was an independent ambulator with the use of a cane. She has parkinsonism, which made her somewhat unsteady on her feet and led to the use of a cane. She has had TIAs, but these did not lead to any weakness on either the left or right side in the arms or legs. MEDICAL/SURGICAL HISTORY: She denies having had any surgery in the past. Her medical history consists of, as mentioned in the history of present illness, parkinsonism, currently on carbidopa/levodopa. She is also on primidone. She has a history of TIAs, the last one of which was 3 months ago. The sister says at that time she had a carotid ultrasound and was told that no surgery would be helpful on the carotids. She denies a history of seizure. She denies myocardial infarction. She has had a history of chest pain, but not chest pain on exertion, just resting chest pain, which was diagnosed 3 months ago as being GI related. She denies a history of peptic ulcer or acid reflux. She denies a history of renal insufficiency. She denies diabetes or thyroid disease. MEDICATIONS: 1. Carbidopa/levodopa with the dosage not available to me. 2. Primidone, with dosage not available to me. 3. Zoloft, with dosage not available. 4. Vitamin E. 5. The use of a statin, unspecified for hyperlipidemia. ALLERGIES: 1. IBUPROFEN, WHICH CAUSES MOUTH SWELLING, AND HER SISTER SAYS CAUSED HIVES. HER SISTER IS HER CAREGIVER. SOCIAL HISTORY: FAMILY HISTORY: REVIEW OF SYSTEMS: PHYSICAL EXAMINATION: GENERAL: Today shows a thin, poorly developed 76-year-old, alert, oriented, and not in acute distress. She had been given some pain medication previously. She speaks clearly and answers questions intelligently. HEENT: Head is normocephalic, atraumatic. NECK: Painlessly supple. There are no audible bruits. HEART: Regular without murmur, rub, or gallop. LUNGS: Have normal breath sounds and no adventitious sounds. ABDOMEN: Normal bowel sounds. No audible bruit and no tenderness, masses, or organomegaly. EXTREMITIES: The limbs show that the shoulders, elbows, wrists, and fingers move well. There is a resting parkinsonian tremor in her left hand. The left lower extremity was squeezed going hand over hand from the metatarsal heads up to the proximal femur and there was no tenderness. There was no tenderness in the left calf. I could not palpate her pulse, but there is a good biphasic Doppler on the dorsalis pedis of the left foot. The right leg is externally rotated and shortened. There is mobility of the toes actively in flexion and extension. Going hand over hand from the metatarsal heads up to the mid femur, there is no tenderness. There is no calf tenderness. IMPRESSION: 1. After review of the x-rays, she has a subcapital fracture of the right hip. 2. Parkinsonism. 3. Hyperlipidemia. 4. History of multiple transient ischemic attacks, last one 3 months ago. PLAN: Dr. Llamas has agreed to see her in consultation for medical clearance preoperatively. I discussed the patient's condition and the pending bipolar hip replacement surgery with the family, explaining the risks and benefits including but not limited to the risks of , stroke, infection, and dislocation. Plan is to float the heels, type and screen, and plan on bipolar hip replacement tomorrow afternoon. The patient and her sister and brother have consented to the procedure.
[2016-11-24 23:55] VITALS: BP 136/65
[2016-11-25] VITALS (12 sets, daily range): BP systolic 102–146; BP diastolic 46–94
--- NOTE | 2016-11-25 | NUR ---
Admitted with fractureof the right hip after having a ground level fall. Patient is currently NPO in preparation for a right hip replacement today at [address] Frank. She had a omalley cath put in from ED. She is on 2 hourly turns and is on prn pain meds.
[2016-11-25] MEDS ORDERED: SINEMET PO (01:23)
--- NOTE | 2016-11-25 06:59 | Consultation Report ---
History Chief Complaint right hip pain History of Present Illness Patient is a 76 year old female with a pmh of parkinsons disease, depression, GERD, and recent fungal infeciton that is presenting after falling in a restaurant. Patient was apparently in a caraballo at a restaurant when she slid on the bench and fell on the floor on her right side. Immediatley after falling she complained of right hip pain and the inability to walk without severe pain. Patient did not hit her head or any other part of her body. The fall was isolated to the hips. Patient was brought to the ER by her family and was seen by er staff to have a impacted fracture of the right femur. Patient did not have any evidence of any other acute pathologies at the time of admission. Patient History 1. Femoral neck fracture 2. Parkinson disease 3. History of recurrent TIAs 4. Hyperlipidemia Social History Patient latha lives with family. She has no history of drinking, smoking or using ullicit substances. She is normally ambulatory with no assistance and requires not help with her daily adls. Family History Family history was reviewed; no changes noted. Medications and Allergies Medications Home Medications Zoloft Primidoen 100 mg qhs carvidopa/levidopa 25/100 mg qid omeprazole 40 mg daily ondesetron 40 mg daily carafate 1 mg qid Current Medications Sig/Azeb Start time Last Medication Dose Route Stop Time Status Admin Hydromorphone HCl 0.5 MG Q2H PRN 11/25 0200 AC 11/25 IV 0459 Famotidine/Sodium 50 ML Q24HR 11/24 2213 AC 06/05 Chloride IV 0831 Acetaminophen 650 MG Q6H PRN 11/24 2200 AC /05 PO 0614 Dextrose/Sodium 1,000 ML ASDIRECTED 11/24 2199 AC /05 Chloride/Electrolyt IV 0024 Naloxone HCl 0.4 MG PRN PRN 11/24 2200 AC IV Ondansetron HCl 4 MG Q6H PRN / 2200 AC IV Allergies Coded Allergies: Ibuprofen (Severe, Swelling, face, throat 11/25/16) Review of Systems Constitutional Other (too sedated- unable to assess). Physical Exam Vital Signs / I&Os Vital Signs Date Time Temp Pulse Resp B/P Pulse O2 O2 Flow FiO2 Ox Delivery Rate 11/25 0745 97.9 115 20 146/74 91 Nasal 1.0 Cannula 06/05 0737 1.0 11/25 0550 78 15 96 Nasal 2.0 Cannula 11/25 0454 76 14 96 Nasal 2.0 Cannula 11/25 0341 96 13 96 Nasal 2.0 Cannula 11/25 0240 81 13 95 Nasal 2.0 Cannula 11/25 0226 97.9 85 18 136/73 91 Room Air 11/24 2355 98.1 78 18 136/65 93 Room Air I&O 11/24 0800 11/24 1600 11/25 0000 Intake Total Output Total Balance General Appearance No acute distress, sedated HEENT Atraumatic, Moist mucous membranes Lungs Clear to auscultation Neck Supple, No JVD, No masses Cardiovascular Regular rate and rhythm, No murmurs, gallops, rubs Abdomen Soft, No tenderness, No guarding Extremities Normal pulses, - tenderness to palpation/flexion of right hip Skin No Breakdown Neurological Sensation intact, Cranial nerves intact, No lateralizing signs, - resting tremor Psych/Mental Status Confused LAB Results Laboratory Tests 11/24 1921 Chemistry Plasma Sodium (136 - 145 mmol/L) 142 Plasma Potassium (3.5 - 5.1 mmol/L) 3.9 Plasma Chloride (98 - 107 mmol/L) 105 CO2 (Enzymatic) (21 - 32 mmol/L) 27 BUN (7 - 18 mg/dL) 22 Creatinine (0.6 - 1.3 mg/dL) 0.9 Est GFR ( Amer) (mL/min) >60 Est GFR (Non-Af Amer) (mL/min) >60 Glucose (70 - 110 mg/dL) 118 Plasma Calcium (8.5 - 10.1 mg/dL) 8.8 Total Bilirubin (0.0 - 1.0 mg/dL) 0.2 AST (15 - 37 U/L) 18 ALT (12 - 78 U/L) 14 Alkaline Phosphatase (46 - 116 U/L) 83 Total Protein (6.4 - 8.2 g/dL) 7.0 Albumin (3.3 - 5.0 g/dL) 3.3 Coagulation INR (0.8 - 1.2) 1.0 APTT (24 - 34 SECONDS) 30 Hematology WBC (4.5 - 11.5 K/uL) 6.1 RBC (4.00 - 5.20 M/uL) 4.48 Hgb (12.0 - 16.0 gm/dL) 12.9 Hct (36.0 - 46.0 %) 39.0 MCV (80 - 100 fL) 87 MCH (26 - 34 pg) 29 RDW (11.6 - 14.8 %) 13.6 Neut % (Auto) (50 - 75 %) 66.0 Lymph % (Auto) (25 - 40 %) 24.9 Alcorn % (Auto) (3 - 14 %) 6.4 Eos % (Auto) (0 - 4 %) 2.6 Baso % (Auto) (0 - 2 %) 0.1 Plt Count, EDTA (150 - 400 K/uL) 279 PUBS MCHC (31 - 37 g/dL) 33 Assessment and Plan Problem List 1. Femoral neck fracture Plan - sustained during fall - impacted fracture of the right hip - pt due for surgery in the pm - no evidence of hematoma on exam - patient doesnt pose a risk to a moderate degree surgeryr 2. Parkinson disease Plan - pt has an established history of parkinsons disease - physical manifestations considered moderate in degree - c/w carvidopa and levidopa after surgery - c/w primidone after surgery 3. History of recurrent TIAs Plan - no evidence of neurological deficits on exam 4. Hyperlipidemia Plan - will c/w medications as out patient
--- NOTE | 2016-11-25 08:30 | NUR ---
Pt is on WAFFLE mattress, will be having surgery today , will continue to monitor.
--- NOTE | 2016-11-25 08:37 | NUR ---
PT IS RESTING AND DENIES PAIN AT THIS TIME. PT STATES NO NEEDS AT THIS TIME. CALL LIGHT WITHIN REACH. WILL CONTINUE TO MONITOR.
--- NOTE | 2016-11-25 11:52 | NUR ---
CALLED DR RODRIGUEZ TO ADVISE THAT PT IS EASILY AROUSED AFTER PAIN RX BUT GOES BACK TO SLEEP IN MIDDLE OF TALKING TO THIS RN. HE WILL ADJUST PAIN RX.
--- NOTE | 2016-11-25 15:34 | NUR ---
I discussed with the patient their current medications, possible side effects, and answered questions.
[2016-11-25] MEDS ORDERED: MYSOLINE50 MG PO (15:46)
[2016-11-25] MEDS ORDERED: SIMVASTATIN10 MG PO (15:47)
[2016-11-25] MEDS ORDERED: ZOLOFT25 MG PO (15:48)
[2016-11-25] MEDS ORDERED: VITAMIN E200 UNIT PO (15:48)
[2016-11-25] MEDS ORDERED: BAYER CHEWABLE81 MG PO (15:48)
--- NOTE | 2016-11-25 18:56 | NUR ---
ARRIVED TO UNIT, DROWSY.O2 MONITRED, LOW 90'S, PLACED ON O2/nc. FAMILY MEMBERS INVITED IN TO pacu POST OPERATIVELY.
--- NOTE | 2016-11-25 19:30 | DIAGNOSTIC IMAGING REPORT ---
PROCEDURE: XR HIP 1 VIEW - RIGHT - PC INDICATION: Postop right hip prosthesis. TECHNIQUE: Portable AP view (1910 hours). COMPARISON: Comparison made radiographs of the right hip on 11/24/2016. FINDINGS: Interim excision of right femoral head and neck with placement of right proximal femoral prosthesis (anatomic position). Overlying surgical clips and subcutaneous emphysema IMPRESSION: 1. Placement of right proximal femoral prosthesis (anatomic position).
--- NOTE | 2016-11-25 19:36 | NUR ---
PT ARRIVED FROM PACU, CATHETER IN PLACE AND DRAINING WELL, ABDUCTOR PILLOW IN PLACE, R FOOT COOL TO TOUCH BUT CAP REFILL WNL. PT IS SLEEPY AND SLIGHTLY CONFUSED. STATED "I NEED NEW CLOTHES TO GO HOME" "THEY CUT THEM OFF OF ME" PT BEGAN TO REMOVE GOWN AND PULL ON TUBING. ASKED PT IF KNOW WHERE SHE WAS AND STATED "HAD SURGERY ON MY LEG" STATED NAME THEN RETURNED TO SLEEPING. DRESSING IS CDI. NO OTHER ISSUES. WCTM.
--- NOTE | 2016-11-25 19:41 | NUR ---
AWAKEN EASILY AT TIME OF POST OPERATIVE HIP HIP. DENIES SURGICAL SITE PAIN, ABLE TO CLEAR THROAT ON REQUEST, ORAL SUCTIONING INITIALLY DONE ON ARRIVAL TO PACU. MOVES ABOUT SOME, NO TREMORS AT TIME OF TRANSFER TO FLOOR.
--- NOTE | 2016-11-25 20:55 | OPERATIVE REPORT ---
DATE OF SURGERY: 11/25/2016 SURGEON: Chino Frank MD MANAGER DEMAND: None. PREOPERATIVE DIAGNOSIS: 1. Subcapital fracture of the right hip POSTOPERATIVE DIAGNOSIS: 1. Subcapital fracture of the right hip PROCEDURE PERFORMED: 1. Right bipolar hip replacement ANESTHESIA: General. ESTIMATED BLOOD LOSS: 500 mL DRAINS: None. PATHOLOGY SPECIMEN: Femoral head and fragment of the femoral neck. FLUIDS: No transfusions were performed. IMPLANTS: Provided by [employer] and consist of a size 9 Synergy porous femoral component and a bipolar head 22 mm inner diameter, 42 mm outer diameter bipolar head and a 22 mm outer diameter +0 neck length in her tapered femoral head. COMPLICATIONS: None. SURGICAL TECHNIQUE: The patient was brought to the operating room and anesthetized in the supine position then turned into the left lateral decubitus with the affected right side fracture up. She was held in place with a beanbag and pressure points were padded. A time-out was held and the patient was identified, the surgery was identified, diagnosis was given, the antibiotic was identified and all agreed. A posterior approach was used to the hip. Skin, subcutaneous tissue and fascia of the gluteus were cut in the same line. The anterior and posterior flaps of the gluteus were held open with a Charnley retractor. The posterior short external rotators were transected off the trochanter. Hemostasis was obtained with the electrocautery. The capsule was cut along the trochanter and in line with the femoral neck to make a T-shaped incision. The femoral head was removed and measured at 42 mm diameter. A 42 mm head was trialed in the acetabulum and found to fit satisfactorily. The femoral neck was osteotomized in line with the collar of the prosthesis and T-shaped awl was used to open the canal and the canal was broached to a size 9 broach. The broach was used to trial a standard femoral neck length, which was found to have good extension and flexion. The broach was removed and the permanent #[address]. The acetabulum was irrigated out and sucked dry and visually inspected for debris and none was seen. Then the trial head was placed on the permanent stem and the +0 neck length found to have a good balance of extension of the hip and stability. The bipolar head was assembled and placed on the trunnion of the stem. It was tapped into place and I made an attempt to dissociate the bipolar head from the prosthetic stem and I could not pull them apart. Then the permanent assembly was relocated into place. The capsule was repaired with #1 Vicryl. The remainder of the wound was closed in layers with absorbable suture, except for the skin, which was closed with leelee. The patient tolerated the procedure well and after a sterile dressing was applied she was brought from the operating room in good condition.
--- NOTE | 2016-11-25 21:48 | NUR ---
PT IS RESPONSIVE TO QUESTIONS, DENIES PAIN, SOB OR CP. 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 WCTM.
[2016-11-26 02:40] VITALS: BP 101/45
--- NOTE | 2016-11-26 02:50 | NUR ---
Pt has been drowsy w/restless periods. Removing gown. Awakes confused. Reorients fairly easily & cooperative. More alert now than earlier in shift. Able to state she was in hospital. Didn't know exact date. Denies pain. Turning q2h. Abductor pillow in place. Both feet cool & pulses difficult to palpate, so doppler used for pulses & no problem with those. Strong pulse found easily w/doppler. Dsg to R hip CDI. Sears draining dk yellow urine. O2 2L NC on. Unable to follow direction well enough or stay awake long enough to take sip of H20. Per prev RN pt has difficulty swallowing d/t Parkinsons, so pt needs swallow eval. Will order. IVF infusing 100 cc/h.
[2016-11-26 07:23] VITALS: BP 103/53
--- NOTE | 2016-11-26 07:54 | NUR ---
Pt much more alert this am. Informal RN bedside swallow screen done this am. Pt able to follow commands & swallow H20 w/meds whole in applesauce. d/w Dr. Llamas & Dr. Raymundo & they are comfortable w/pt not having swallow eval now that she is more alert.
--- NOTE | 2016-11-26 08:27 | Progress Note ---
Subjective General Confused overnight per RN but nopw A&Ox4. Endorses R hip pain -well controlled. Denies CP, SOB, calf pain, numbness. Magda PO sips and applesauce so RN discussed with hospitalist who DC'd plan for possible swallowing study. Physical Exam Vital Signs / I&Os Vital Signs Date Time Temp Pulse Resp B/P Pulse O2 O2 Flow FiO2 Ox Delivery Rate 11/26 0723 36.8 89 18 103/53 99 Nasal 3.0 Cannula 06/06 0701 3.0 06/06 0240 37.2 81 18 101/45 100 Nasal 2.0 Cannula 06/06 0158 2.0 06/05 2231 36.7 94 18 102/46 98 Nasal 3.0 Cannula 06/05 2133 37.3 82 18 103/61 99 Nasal 3.0 Cannula 06/05 2103 37.3 85 20 112/57 98 Nasal 3.0 Cannula 06/05 2029 80 20 136/62 97 Nasal 3.0 Cannula /2014 37.3 90 18 112/59 98 Nasal 3.0 Cannula 06/05 2001 37.4 83 18 126/61 98 Nasal 3.0 Cannula 06/05 1952 3.0 06/05 1948 36.5 84 18 116/54 98 Nasal 3.0 Cannula 06/05 1936 36.7 83 20 127/50 98 Nasal 3.0 Cannula 06/05 1920 82 18 122/58 98 06/05 1915 36.1 80 20 122/55 97 Nasal 2.0 Cannula 06/05 1910 81 20 124/59 97 Nasal 2.0 Cannula 06/05 1905 84 20 108/62 98 Nasal 2.0 Cannula 06/05 1900 81 97 116/54 97 Nasal 2.0 Cannula 06/05 1855 81 18 108/58 98 Nasal 2.0 Cannula 06/05 1850 82 20 99/46 92 06/05 1845 83 18 109/53 93 06/05 1844 36.3 94 20 114/46 94 06/05 1425 37.2 87 20 129/94 93 Room Air 06/05 1155 94 Room Air 06/05 1039 36.9 84 20 141/76 97 Nasal 1.0 Cannula I&O 06/06 0000 06/05 1600 06/05 0800 Intake Total 1000 427 587 Output Total 1000 800 375 Balance 0 -373 212 General Appearance Alert, Oriented X3, Cooperative, No acute distress, follows commands HEENT Normal exam, Atraumatic Extremities Normal exam, No LLD, SCDs on B LEs, abd pillow in place., B calfs nontender. Skin No Rashes, No Breakdown, No Significant Lesions, Dressing CDI Skin pink and warm Neurological Normal exam, Normal speech, Sensation intact, No lateralizing signs , Parkinson's tremor Psych/Mental Status Mental status normal, Mood normal LAB Results labs ordered for 9 AM! Imaging Pre- & Post-Op R hip x-rays reviewed. One post-op AP hip x-ray only. Uncemented bipolar hemiarthroplasty in acceptable position. No hip dislocation or fx appreciated. Assessment and Plan Problem List 1. Femoral neck fracture Qualifiers Encounter type: initial encounter Fracture type: closed Laterality: right Qualified Code: S72.001A - Fracture of unspecified part of neck of right femur, initial encounter for closed fracture Status Acute Onset Date 11/24/16 Plan Doing well orthopaedically POD#1 s/p R hip hemiarthroplasty for displaced femoral neck fx in pre-fall cane ambulator due to Parkinson's. Hx TIA's, GERD, depression, HLD. -> PT, WBAT with R posterior hip precautions x 6 weeks. -> Complete periop Abx (ANCEF) -> Follow HCT -> DC planning, anticipate SNF but goal is return home with daughter. -> Lovenox ordered but OK with me to transition to ECASA 325 mg 2x/day x 6 weeks. -> Will Check AP pelvis and lateral R hip x-rays -> DC omalley per protocol -> Bowel program -> Return to clinic in 2 weeks for staple removal. Hospitalist is primary service, Orthopaedics with follow as consultants.
[2016-11-26 10:00] VITALS: BP 102/60
--- NOTE | 2016-11-26 10:37 | DIAGNOSTIC IMAGING REPORT ---
PROCEDURE: XR HIP 2VW W W/O AP PELVIS-RT INDICATION: s/p R hip hemiarthoplasty TECHNIQUE: AP view of the pelvis and hips with lateral view of the right hip. COMPARISON: Right hip films 11/25/2016 and 11/24/2016 FINDINGS: Right HIP: Interim excision of right femoral head and neck with placement of right proximal femoral prosthesis (anatomic position). Overlying surgical clips and subcutaneous emphysema PELVIS: Osseous pelvis is normal. IMPRESSION: 1. right proximal femoral prosthesis (anatomic position).
--- NOTE | 2016-11-26 12:00 | NUR ---
Called Dr. Llamas in regards to how pt did with Marlene/PT and didn't handle PT well. She's not recommending trying to get pt to bedside commode at this time. Dr. Llamas stated ok to keep omalley in today and to re-evaluate again tomorrow because he wants it out sooner than later. will pass along in report.
[2016-11-26 14:25] VITALS: BP 101/54
--- NOTE | 2016-11-26 15:11 | NUR ---
PT STATES THAT HER PAIN IS 4/10 RIGHT NOW. WILL CHECK IN ON HER IN A LITTLE WHILE.
--- NOTE | 2016-11-26 15:34 | ED DISCHARGE INSTRUCTIONS ---
Patient: MAYA COLMENARES General Instructions [facility] VisitID: [id number] [address] [place] [address] 76y, F Registration Date/Time: 11/24/2016 right femoral neck fracture, acute closed. (Electronically signed by Joshua Acevedo Dr. 11/26/2016 15:34)
--- NOTE | 2016-11-26 15:34 | ED MED RECONCILIATION SUMMARY ---
Patient: MAYA COLMENARES Medication Reconciliation Report [facility] VisitID: [id number] [address] [place] [address] 76y, F Registration Date/Time: 11/24/2016 Weight: 48.5 kg Height/Length: 60 in. BMI: 20.9 ALLERGIES: None The patient's Home Medications are listed below: THE FOLLOWING MEDICATIONS NEED TO BE RECONCILED: Carbidopa-Levodopa Oral Primidone Oral Statins Support Oral Vitamin E Zoloft Oral The source(s) of the original Home Medication information: patient The following Medications were given to the patient in the Emergency Department: Morphine [IVP] IVP 4 mg, administered: 11/24/2016 7:17:00 PM Morphine [IVP] IVP 4 mg, administered: 11/24/2016 8:30:00 PM The following Medications were prescribed to the patient: None.
--- NOTE | 2016-11-26 15:34 | ED DISCHARGE INSTRUCTIONS ---
Patient: MAYA COLMENARES General Instructions [facility] VisitID: [id number] [address] [place] [address] 76y, F Registration Date/Time: 11/24/2016 right femoral neck fracture, acute closed. (Electronically signed by Joshua Acevedo Dr. 11/26/2016 15:34)
--- NOTE | 2016-11-26 15:34 | ED MAR SUMMARY ---
..... Medication Administration Record [facility] [address] [place] [address] Patient: MAYA COLMENARES Visit ID: [id number] 76y, F Weight: 48.5 kg Height/Length: 60 in BMI: 20.9 ALLERGIES: None Given 19:17 11/24/2016 Megan Galvan R.N. Medication Administered: MORPHINE [IVP], Dose: 4 mg IVP over 1 minute(s), Site: #1 right forearm. Medication Ordered: Morphine IV 4 mg (HIGH ALERT MEDICATION, NOW). Given 20:30 11/24/2016 Megan Galvan R.NNataliia Medication Administered: MORPHINE [IVP], Dose: 4 mg IVP over 1 minute(s), Site: #1 right forearm. Medication Ordered: Morphine IV 4 mg (once now. may repeat once in 15 minutes for pain > 5/10).
--- NOTE | 2016-11-26 15:34 | ED MED RECONCILIATION SUMMARY ---
Patient: MAYA COLMENARES Medication Reconciliation Report [facility] VisitID: [id number] [address] [place] [address] 76y, F Registration Date/Time: 11/24/2016 Weight: 48.5 kg Height/Length: 60 in. BMI: 20.9 ALLERGIES: None The patient's Home Medications are listed below: THE FOLLOWING MEDICATIONS NEED TO BE RECONCILED: Carbidopa-Levodopa Oral Primidone Oral Statins Support Oral Vitamin E Zoloft Oral The source(s) of the original Home Medication information: patient The following Medications were given to the patient in the Emergency Department: Morphine [IVP] IVP 4 mg, administered: 11/24/2016 7:17:00 PM Morphine [IVP] IVP 4 mg, administered: 11/24/2016 8:30:00 PM The following Medications were prescribed to the patient: None.
--- NOTE | 2016-11-26 15:34 | ED CLINICAL REPORT ---
Clinical Report - Physicians/Mid Levels [facility] [address] [place] [address] 11/24/2016 18:33 Patient: MAYA COLMENARES Time Seen: 1846. Arrived- By ambulance. Historian- patient. HISTORY OF PRESENT ILLNESS The patient also (none). Chief Complaint: FALL. RIGHT HIP INJURY. The injury occurred just prior to arrival today. ( slid off chair and fell to right hip). (restaurant). Fell. The patient complains of severe pain. No blow to the head, neck pain, loss of consciousness or seizure. Not dazed. (no preceding symptoms. hx of parkinsons.). REVIEW OF SYSTEMS No numbness, chest pain, weakness or abdominal pain. All systems otherwise negative, except as recorded above. PAST HISTORY See nurses notes. Tetanus immunization status is up-to-date. Medications: Statins Support Oral. Vitamin E. Carbidopa-Levodopa Oral. Primidone Oral. Zoloft Oral. Allergies: None. SOCIAL HISTORY Never smoker. No alcohol use or drug use. No recent travel. Is a local resident. PHYSICAL EXAM Appearance: Alert. Oriented X3. No acute distress. Head: Head non-tender. No swelling of head. No De La Cruz's sign or raccoon eyes. Eyes: Pupils equal, round and reactive to light. Pupillary exam: Right pupil 3mm, round and reactive to light directly and consensually and with accommodation. Left pupil: 3mm, round and reactive to light directly and consensually and with accommodation. EOM intact. ENT: No dental injury. No hemotympanum. Pharynx normal. Neck: No decreased ROM or muscle spasm in the neck. No pain with movement of head/neck. Painless ROM. Non-tender. No vertebral tenderness. CVS: Heart sounds normal. Pulses normal. Respiratory: Breath sounds normal. Chest nontender. Abdomen: No visible injury. Soft and nontender. Bowel sounds normal. Back: No tenderness. ROM normal. Skin: Skin intact. Skin warm and dry. Normal skin color. Normal skin turgor. Extremities: (right leg is flexed at the hip slightly. Increased pain with any movement. Tender at the groin. No other abnormalities noted. Compartments are soft. Dorsalis pedis and posterior tibials pulses are 2+ and symmetric with the contralateral side. Capillary refill is less than 3 seconds in all and toes. Rest of the lower extremities atraumatic.). Neuro: [place] Coma Scale: 15 (paralyzed)- eyes open spontaneously (4); best verbal response- oriented x 3 (5); best motor response- obeys commands (6). Oriented X 3. No motor deficit. No sensory deficit. (pill-rolling tremor). PROGRESS AND PROCEDURES Course of Care: he patient is a pleasant 76-year-old female with past medical history significant for Parkinson's disease presenting for nausea ground level fall. No preceding symptoms. Patient had a mechanical type fall. Patient with history of Parkinson's disease. Concern for right hip fractureversus dislocation versus contusion. He is agreeable to treatment plan. Pain medication has been offered. The patient's workup was markable for a femoral neck fracture on the right. Patient continues to be neurovascularly intact. Consult to orthopedic surgery placed. Updated patient on the likely need to stay in the hospital because of the fracture. Was able to speak orthopedic surgery. Patient will be admitted. Consult placed to medicine to help with the admission. Patient is agreeable to the treatment plan after discussing her diagnosis and plan of care. All questions have been answered. The patient expressed understanding of these instructions and was agreeable to them. Prior to patient's departure from the emergency department she is noted to be neurovascularly intact. Patient is stable for floor level placement. Do not feel patient needs intensive care unit. Critical care performed (40 minutes). Time is exclusive of separately billable procedures. Time includes: direct patient care, patient reassessment, coordination of patient care, review of patient's medical records, medical consultation, family consultation regarding treatment decisions and documentation of patient care. Consult obtained. Orthopedic surgery. Disposition: Observation in Acute Care. CLINICAL IMPRESSION right femoral neck fracture, acute closed. (Electronically signed by Joshua Acevedo Dr. 11/26/2016 15:34)
--- NOTE | 2016-11-26 15:34 | ED MAR SUMMARY ---
..... Medication Administration Record [facility] [address] [place] [address] Patient: MAYA COLMENARES Visit ID: [id number] 76y, F Weight: 48.5 kg Height/Length: 60 in BMI: 20.9 ALLERGIES: None Given 19:17 11/24/2016 Megan Galvan R.N. Medication Administered: MORPHINE [IVP], Dose: 4 mg IVP over 1 minute(s), Site: #1 right forearm. Medication Ordered: Morphine IV 4 mg (HIGH ALERT MEDICATION, NOW). Given 20:30 11/24/2016 Megan Galvan R.NNataliia Medication Administered: MORPHINE [IVP], Dose: 4 mg IVP over 1 minute(s), Site: #1 right forearm. Medication Ordered: Morphine IV 4 mg (once now. may repeat once in 15 minutes for pain > 5/10).
--- NOTE | 2016-11-26 15:57 | NUR ---
NUTRITIN ASSESSMENT: S:Pt admitted with dx/o right femoral neck fx and s/p right bipolar hip replacment. PMH includes: TIAs, hyperlipidemia, parkinsonism. There was a concern of swallowing issues but per bedside swallow pt not haveing issues at this time. If issues noted, then MD will likely consider swallow eval. Pt is able to feed herself, but does need some assistance 2/2 pt noted to be tremulous. She is now on a [facility] soft diet but will need soft foods cut up expecially meats to help promote self feeding. Per staff pt just needs some assist and standby to help. Per pt only ate applesauce for lunch today. O: diet Rx: [facility] soft thin NKFA Wts: 56.6 kg Ht: 60" BMI: 24.5 IBW: 44-57 %IBW: 100 Est Kcals: ~7358-4649 kcals per day Est Pro: ~55-65 g per day Est Fluids: ~1650 mls per day Meds Incl: carbidopa, IVFs, lovenox, sertraline, see eMar for complete list/detail. Labs incl: (11/26) glucose 150, BUN 11, Creat 1.0, Na+ 140, K+ 3.8, Ca+ 7.8, HCT 29.8, HGB 9.9, MCV 86, MCH 29 (11/24) albumin 3.3, total pro 7.0 Skin: Andre score: 18, surgical inc right hip, waffle overlay in place A: Pt po appears mostly poor, appetite poor per pt. Asstance will be provide by staff at meals per child care attendant school. Rev'd meds and labs. Rec continue current diet and monitor tolerance RD to follow up prn/protocol. P: 1. Add mighty shakes q meal
[2016-11-26 18:10] VITALS: BP 95/48
--- NOTE | 2016-11-26 18:57 | NUR ---
CALLED DR AVINA BECAUSE PT'S SISTER WOULD LIKE THE PRIMIDONE ADDED. HE WILL PUT THE ORDER IN
[2016-11-26 22:41] VITALS: BP 119/62
--- NOTE | 2016-11-26 23:23 | NUR ---
RESTING IN BED, ALERT, ORIENTED TO SELF AND ABLE TO STATE BIRTHDATE. HAVING DIFFICULTY FINDING WORDS. C/O R HIP PAIN, UNABLE TO RATE AND DESCRIBE PAIN. R HIP DRESSING CDI. PRN PAIN MEDS GIVEN.
[2016-11-27 02:20] VITALS: BP 107/64
--- NOTE | 2016-11-27 04:16 | NUR ---
PATIENT PULLED OUT IV, REMOVED ABD PAD DRESSING ON R HIP, TAPE REMAIN INTACT. DRESSING RE INFORCED.
--- NOTE | 2016-11-27 04:19 | NUR ---
INCONTINENT OF URINE X 3, ABDOMEN SOFTLY DISTENDED, BLADDER SCAN 0NLY 167 CC.
[2016-11-27 07:10] VITALS: BP 117/64
--- NOTE | 2016-11-27 07:49 | Progress Note ---
Subjective General Was confused last night pulled out IV, and at dressing, incontinent of urine. Pain controlled. Now reoriented to person place and situation. Denies CP/SOB/ calf tenderness. Physical Exam Vital Signs / I&Os Vital Signs Date Time Temp Pulse Resp B/P Pulse O2 O2 Flow FiO2 Ox Delivery Rate 11/27 0710 37.1 106 18 117/64 95 Room Air 0.0 11/27 0220 37.1 85 17 107/64 96 11/26 2241 36.8 107 19 119/62 95 Room Air 11/26 1945 Room Air 3.0 11/26 1810 36.7 98 20 95/48 95 Nasal 3.0 Cannula 11/26 1425 36.8 92 20 101/54 99 Nasal 3.0 Cannula 11/26 1000 36.9 90 24 102/60 99 Nasal 3.0 Cannula I&O 11/27 0000 11/26 1600 11/26 0800 Intake Total 6621 495 1116 Output Total 950 1650 600 Balance 236 -880 889 General Appearance Alert, Oriented X3, Cooperative, No acute distress Extremities No LLD, New dressing CDI, R SCD off L on abduction pillow in place. Skin No Rashes, No Breakdown, No Significant Lesions Neurological Normal speech, Sensation intact, No lateralizing signs, Fires B E& FHLs Psych/Mental Status Mental status normal, Mood normal, Confused LAB Results Laboratory Tests 11/26 0900 Chemistry Plasma Sodium (136 - 145 mmol/L) 140 Plasma Potassium (3.5 - 5.1 mmol/L) 3.8 Plasma Chloride (98 - 107 mmol/L) 107 CO2 (Enzymatic) (21 - 32 mmol/L) 25 BUN (7 - 18 mg/dL) 11 Creatinine (0.6 - 1.3 mg/dL) 1.0 Est GFR ( Amer) (mL/min) >60 Est GFR (Non-Af Amer) (mL/min) 57.60 Glucose (70 - 110 mg/dL) 150 Plasma Calcium (8.5 - 10.1 mg/dL) 7.8 Hematology WBC (4.5 - 11.5 K/uL) 7.4 RBC (4.00 - 5.20 M/uL) 3.46 Hgb (12.0 - 16.0 gm/dL) 9.9 Hct (36.0 - 46.0 %) 29.8 MCV (80 - 100 fL) 86 MCH (26 - 34 pg) 29 RDW (11.6 - 14.8 %) 13.7 Neut % (Auto) (50 - 75 %) 73.2 Lymph % (Auto) (25 - 40 %) 15.5 [place] % (Auto) (3 - 14 %) 9.8 Eos % (Auto) (0 - 4 %) 1.4 Baso % (Auto) (0 - 2 %) 0.1 Plt Count, EDTA (150 - 400 K/uL) 220 PUBS MCHC (31 - 37 g/dL) 33 Imaging No periprosthetic fx, R hip gelacio reduced and in good position. Leg lengths ~ = on NWB AP pelvis. Assessment and Plan Problem List 1. Femoral neck fracture Qualifiers Encounter type: initial encounter Fracture type: closed Laterality: right Qualified Code: S72.001A - Fracture of unspecified part of neck of right femur, initial encounter for closed fracture Status Acute Onset Date 11/24/16 Plan Doing well orthopaedically POD#2 s/p R hip bipolar hemiarthroplasty. . Will follow hct. Discussed with hospitalist that per protocol pt iis on their service and orthopaedics is consulting. Continue WBAT, R posterior hip precautions. May convert to ECASA 325 mg 2x/d x 6 weeks when hospitalist want to DC lovenox. Will need SNF placement. Ret to orthopaedic Clinic in 2 weeks for staple removal, keep wound clean and dry until then. Needs BM and wound check before DC.
--- NOTE | 2016-11-27 09:57 | NUR ---
pt seated in chair upon arrival and agreeable to skilled PT intervention. pt completed sit to stand Mod A with a FWW. v/c and t/c were given to bring body forward as pt braces legs to chair and tends to have a posterior lean. Once balanced pt completed chair -> bed transfer Mod A with FWW. A given for all movement of FWW and to help maintain pt's balance as she tends to go back to a posterior lean. pt completed bed mobility Mod A for sit to supine and to help scoot pt towards middle of bed. Ankle pumps and quad sets were given but pt kept falling asleep during the exercises. pt left with call juarez within reach. Sister in the room. pt is continued to be recommended to d/c to SNF with PT and OT to improve safe functional mobility prior to returning home.
[2016-11-27 11:15] VITALS: BP 115/48
[2016-11-27 14:28] VITALS: BP 113/51
--- NOTE | 2016-11-27 14:59 | Progress Note ---
Subjective General Patient seen and examined this morning. Patient when speaking to me did not express any problems except for periodic episodes of confusion. As per patient' s sister patient does occasionally encounter periods of confusion which is quickly resolved. Patient has also been having beginning signs of dementia. Lastly patient's sister expressed that patient and her family have been notoriously sensitive to pain medication. This could be the etiology behind the patient's confusion. Unlikely suspicion of a organic cause. Will eliminate as much narcotic pain medication as possible Constitutional Denies: Fever, Chills, Sweats, Weakness, Malaise, Other. Eyes Denies: Pain, Vision Change, Conjunctival Inflammation, Eyelid Inflammation, Redness, Other. Respiratory Denies: Cough, Dry, SOB w/exertion, Wheezing, Hemoptysis, Pleuritic Pain, Sputum , Other. Cardiovascular Denies: Chest Pain, Palpitations, Orthopnea, PND, Edema, Light-headedness, Other. Gastrointestinal Denies: Nausea, Vomiting, Abdominal Pain, Diarrhea, Constipation, Melena, Hematochezia, Other. Genitourinary Denies: Dysuria, Frequency, Incontinence, Hematuria, Retention, Other. Musculoskeletal Denies: Neck Pain, Shoulder Pain, Arm Pain, Back Pain, Hand Pain, Leg Pain, Foot Pain, Other. Skin Denies: Rash, Lesions, Jaundice, Bruising, Other. Neurological Denies: Weakness, Numbness, Incoordination, Change in speech, Confusion, Seizures, Other. Physical Exam Vital Signs / I&Os Vital Signs Date Time Temp Pulse Resp B/P Pulse O2 O2 Flow FiO2 Ox Delivery Rate 11/27 1428 99.0 95 18 113/51 96 Room Air 11/27 1115 99.0 108 18 115/48 95 Room Air 0.0 11/27 0910 Room Air / 0710 98.8 106 18 117/64 95 Room Air 0.0 / 0220 98.8 85 17 107/64 96 / 2241 98.2 107 19 119/62 95 Room Air 11/26 1945 Room Air 3.0 / 1810 98.1 98 20 95/48 95 Nasal 3.0 Cannula I&O 11/26 0800 06/06 1600 06/07 0000 Intake Total 3158 060 5427 Output Total 600 1650 950 Balance 889 -880 236 General Appearance Cooperative, No acute distress HEENT Atraumatic, PERRLA, Moist mucous membranes Lungs Clear to auscultation Neck No JVD, No masses Cardiovascular Normal S1 and S2, No murmurs, gallops, rubs Abdomen Soft, No tenderness Skin No Breakdown, No Significant Lesions Neurological Normal tone, Cranial nerves intact, No lateralizing signs Psych/Mental Status episodic confusion LAB Results Laboratory Tests 11/27 0900 Chemistry Plasma Sodium (136 - 145 mmol/L) 142 Plasma Potassium (3.5 - 5.1 mmol/L) 4.0 Plasma Chloride (98 - 107 mmol/L) 106 CO2 (Enzymatic) (21 - 32 mmol/L) 28 BUN (7 - 18 mg/dL) 9 Creatinine (0.6 - 1.3 mg/dL) 0.9 Est GFR ( Amer) (mL/min) >60 Est GFR (Non-Af Amer) (mL/min) >60 Glucose (70 - 110 mg/dL) 99 Plasma Calcium (8.5 - 10.1 mg/dL) 8.0 Hematology WBC (4.5 - 11.5 K/uL) 10.0 RBC (4.00 - 5.20 M/uL) 3.47 Hgb (12.0 - 16.0 gm/dL) 9.9 Hct (36.0 - 46.0 %) 29.6 MCV (80 - 100 fL) 86 MCH (26 - 34 pg) 29 RDW (11.6 - 14.8 %) 13.4 Neut % (Auto) (50 - 75 %) 68.9 Lymph % (Auto) (25 - 40 %) 17.8 [place] % (Auto) (3 - 14 %) 11.5 Eos % (Auto) (0 - 4 %) 1.6 Baso % (Auto) (0 - 2 %) 0.2 Plt Count, EDTA (150 - 400 K/uL) 208 PUBS MCHC (31 - 37 g/dL) 34 Assessment and Plan Problem List 1. Femoral neck fracture Qualifiers Encounter type: initial encounter Fracture type: closed Laterality: right Qualified Code: S72.001A - Fracture of unspecified part of neck of right femur, initial encounter for closed fracture Status Acute Onset Date 11/24/16 Plan Patient doing well after the operation No evidence of hematoma or surgical site infection Aggressive management as per orthopedics 2. Parkinson disease Plan Established history of Parkinson's disease Continue with carbidopa/levodopa Continue with premed don't Confusion most likely secondary to use of narcotic pain medication Unlikely source of infection or other organic causes 3. History of recurrent TIAs Plan No evidence of abnormal neurological function Patient has no neurological deficits that can be appreciated 4. Confusion Plan Patient has been having episodic confusion Also likely due to opiate medication Patient is self aware about the confusion herself which gives us hope that this is most likely due to purely iatrogenic causes Will minimize the amount of narcotic medications the patient's getting
--- NOTE | 2016-11-27 16:37 | NUR ---
Pt is very sweet and wants to respond to questions but has difficulty forming words with explanation. Used [place] faces and pt stated "confusing". This RN asked if comfortable and pt stated "yes". Ambulating to [facility] [place] slow and shuffling. Remembering to raise right foot while sitting down or standing up with difficult follow through. Dressing is cdi, and lidocain patch present. Breath sounds clear, no sob, nausea or other issues. Gave cup of water without ice per preferance. No tremors present. wctm.
--- NOTE | 2016-11-27 17:04 | Postoperative Progress Note ---
Postop Progress Note Preoperate Diagnosis: R proximal tib/fib fx Postoperative Diagnosis: same Surgeon: Ned Fontenot MD Anesthesia: General ETT Findings: see dictation Procedure: Open reduction and IM nail fixation R proximal tibia fx Complications? No Condition: Stable EBL: 150 mL Fluid(s): 1000 mL Blood Administered: None Specimen(s) removed? No Grafts or Implants? Yes Graft/Implant type: [id number] [employer] tibial metanail with 4 proximal & 2 distal interlock screws and one "blocking screw" . (See nursing notes for details of grafts/implants)
--- NOTE | 2016-11-27 17:04 | Postoperative Progress Note ---
Postop Progress Note Preoperate Diagnosis: R proximal tib/fib fx Postoperative Diagnosis: same Surgeon: Ned Fontenot MD Anesthesia: General ETT Findings: see dictation Procedure: Open reduction and IM nail fixation R proximal tibia fx Complications? No Condition: Stable EBL: 150 mL Fluid(s): 1000 mL Blood Administered: None Specimen(s) removed? No Grafts or Implants? Yes Graft/Implant type: [id number] [employer] tibial metanail with 4 proximal & 2 distal interlock screws and one "blocking screw" . (See nursing notes for details of grafts/implants)
--- NOTE | 2016-11-27 17:34 | NUR ---
PT SITTING IN CHAIR FOR DINNER AND FEEDING SELF WITHOUT ISSUE.
[2016-11-27 18:15] VITALS: BP 129/57
--- NOTE | 2016-11-27 20:01 | NUR ---
Pt ambulated to bsc with stronger steps, ambulation to bed was 2 sba. Tremors and weakness. Improvement.
[2016-11-27 22:58] VITALS: BP 119/73
--- NOTE | 2016-11-27 23:49 | NUR ---
RESTING IN BED, WATCHING TV. ALERT, ORIENTED TO SELF AND PLACE. LIDOCAINE PATCH R HIP INTACT. C/O R HIP PAIN WITH MOVEMENT.
[2016-11-28 02:34] VITALS: BP 130/69
--- NOTE | 2016-11-28 05:23 | NUR ---
NO BM SINCE ADMISSION. LAST BM 11/23/16. FRUIT FIBER MIX GIVEN.
[2016-11-28 07:04] VITALS: BP 109/56
--- NOTE | 2016-11-28 08:33 | Progress Note ---
Subjective General Slightly less opriented today - knows she is in hospital for a R leg fx but needs prompting to recall it was the hip. Hip pain decreasing. Magda PO, voiding. SNF at [facility] after BM today hopefully. Denies CP/SOB/B calf tenderness. Physical Exam Vital Signs / I&Os Vital Signs Date Time Temp Pulse Resp B/P Pulse O2 O2 Flow FiO2 Ox Delivery Rate 11/28 0704 36.6 77 19 109/56 95 Room Air 0.0 /08 0234 36.8 72 15 130/69 97 Room Air 0.0 /07 2258 36.6 76 16 119/73 97 Room Air 06/ 1815 36.4 106 18 129/57 98 Room Air /07 1613 Room Air 0.0 / 1428 37.2 95 18 113/51 96 Room Air 06/ 1115 37.2 108 18 115/48 95 Room Air 0.0 /07 0910 Room Air I&O 11/28 0000 /07 1600 11/27 0800 Intake Total 1047 1476 1280 Output Total 807 1454 517 Balance 240 22 763 General Appearance Alert, Oriented X3, Cooperative, No acute distress, seated in recliner, able 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 Lungs Normal air movement Extremities Normal exam, No calf tenderness or LE limb length or rotational assymetry. Skin No Rashes, No Breakdown, No Significant Lesions, Styaple closure intact with moderate old bloody drainage on dressing. Neurological Normal exam, Normal speech, Normal tone, Sensation intact, No lateralizing signs, Fires B AD&PFs & E&FHLs. Psych/Mental Status Mental status normal, Mood normal LAB Results Laboratory Tests 11/27 0900 Chemistry Plasma Sodium (136 - 145 mmol/L) 142 Plasma Potassium (3.5 - 5.1 mmol/L) 4.0 Plasma Chloride (98 - 107 mmol/L) 106 CO2 (Enzymatic) (21 - 32 mmol/L) 28 BUN (7 - 18 mg/dL) 9 Creatinine (0.6 - 1.3 mg/dL) 0.9 Est GFR ( Amer) (mL/min) >60 Est GFR (Non-Af Amer) (mL/min) >60 Glucose (70 - 110 mg/dL) 99 Plasma Calcium (8.5 - 10.1 mg/dL) 8.0 Hematology WBC (4.5 - 11.5 K/uL) 10.0 RBC (4.00 - 5.20 M/uL) 3.47 Hgb (12.0 - 16.0 gm/dL) 9.9 Hct (36.0 - 46.0 %) 29.6 MCV (80 - 100 fL) 86 MCH (26 - 34 pg) 29 RDW (11.6 - 14.8 %) 13.4 Neut % (Auto) (50 - 75 %) 68.9 Lymph % (Auto) (25 - 40 %) 17.8 [place] % (Auto) (3 - 14 %) 11.5 Eos % (Auto) (0 - 4 %) 1.6 Baso % (Auto) (0 - 2 %) 0.2 Plt Count, EDTA (150 - 400 K/uL) 208 PUBS MCHC (31 - 37 g/dL) 34 Assessment and Plan Problem List 1. Femoral neck fracture Qualifiers Encounter type: initial encounter Fracture type: closed Laterality: right Qualified Code: S72.001A - Fracture of unspecified part of neck of right femur, initial encounter for closed fracture Status Acute Onset Date 11/24/16 Plan Doing well orthopaedically POD#3 s/p R hip hemiarthroplasty. OK to DC tro SNF after BM. Continue to keep wound clean and dry until staple removal in clinic 2 weeks post-op. Continue R posterior hip precautions for 6 weeks post-op and can transition to ECASA 325mg 2x/d x 6 weeks postop. Other plans as per yesterdays progress note.
[2016-11-28 10:51] VITALS: BP 112/44
--- NOTE | 2016-11-28 11:24 | NUR ---
NO BM SINCE 11/23/16. FRUIT PASTE GIVEN ON PREVIOUS SHIFT. REQUESTED MIRALAX FROM THIS AM DURING ROUNDS.
--- NOTE | 2016-11-28 11:26 | NUR ---
pt completed sit to stand Min A with FWW. v/c to stand up straight as pt continues to have a tendency to lean posteriorly. pt ambulated 15 ft around the bed Min A for FWW direction. pt completed sit to supine Mod Ax2. pt then completed ankle pumps x5 and quad sets x5. pt c/o of fatigue and requested to sleep. pt is continued to be recommended d/c to SNF with PT and OT.
--- NOTE | 2016-11-28 12:33 | NUR ---
Nutrition follow up note: Pt admitted with dx/o R femoral neck fx and s/p bipolar hip replacement. Pt currently following a general diet, mechanical soft and may require assistance w/ meals to feed. PO intake appears to be moderate and improved since admit, although may still be inadeqate for nutritional needs. (PO intake in chart shows 11/26: 20-50% on clear liquids, 11/27: 50% of meals and 11/28: 50% bkfst.) Pt could benefit from additional nutritional supplements to support wt stabilization and for healing needs. P: 1. Add mighty shakes q meal 2. Continue current diet
[2016-11-28] MEDS ORDERED: LIDODERM5 % TOP (13:32)
[2016-11-28] MEDS ORDERED: TRAMADOL HCL50 MG PO (13:32)
--- NOTE | 2016-11-28 13:32 | Provider's Discharge Care Plan ---
Problem, Goal, Plan Problem List 1. Femoral neck fracture Instructions: - DOING WELL - MAINTAIN R POSTERIOR PRECAUTIONS - EDY COME OUT IN 2 WEEKS 2. Parkinson disease Instructions: Take meds as directed 3. Confusion Instructions: - RESOLVED. AVOID OPIOID MEDICAITONS
[2016-11-28 14:25] VITALS: BP 114/48
--- NOTE | 2016-11-28 14:27 | Discharge Summary ---
Discharge Summary Report Admit Date 11/24/16 Discharge Date 11/28/16 Admission Diagnosis fall with right femoral fracture Discharge Diagnosis fall with right femoral fracture Brief History please refer to admission h&p Hospital Course Patient was admitted for right femoral hip fracture. Patient was initially admitted to the medical floor and managed with pain medication. Patient was seen by orthopedics and the medical team. Patient has a known history of Parkinson's disease for which she did not have any exacerbation of the time. Patient was seen to be very sensitive to pain medication and specifically opiates in which she'll be very confused. Patient was able to tell that she was confused secondary to the medication and opted for nonopiate medication. Patient the next day 1 for right bipolar hip replacement. Patient tolerated the procedure without much difficulty and had no resulting pain afterwards. The patient did have confusion stemming from anesthesia and use of opiate agents however the confusion resolved after cessation of opiates. Patient was seen by physical therapy who recommended the patient go to a certified intermediate facility. Patient was amenable to this decision and she will be discharged today to go to [facility]. Patient currently is mentating well and is at her baseline as per family and per patient herself. Patient will follow-up with orthopedic clinic in 2 weeks to have the leelee removed. She will resume all her home medications. Patient is on adequate pain control for this problem. Patient has no questions and understands the discharge plan General Appearance Alert, Oriented X3, No acute distress HEENT PERRLA, Mucous membran moist/pink Lungs Normal air movement Cardiovascular Normal S1, Normal S2, No murmurs Abdomen Soft, No tenderness Skin No Breakdown, No Significant Lesions Neurological Normal speech, Normal tone, Sensation intact, Cranial nerves 3-12 NL Psych/Mental Status Mood NL Lab/Imaging Laboratory Tests 11/28 0900 Chemistry Plasma Sodium (136 - 145 mmol/L) 138 Plasma Potassium (3.5 - 5.1 mmol/L) 4.2 Plasma Chloride (98 - 107 mmol/L) 105 CO2 (Enzymatic) (21 - 32 mmol/L) 28 BUN (7 - 18 mg/dL) 6 Creatinine (0.6 - 1.3 mg/dL) 0.8 Est GFR ( Amer) (mL/min) >60 Est GFR (Non-Af Amer) (mL/min) >60 Glucose (70 - 110 mg/dL) 146 Plasma Calcium (8.5 - 10.1 mg/dL) 8.0 Hematology WBC (4.5 - 11.5 K/uL) 9.5 RBC (4.00 - 5.20 M/uL) 3.19 Hgb (12.0 - 16.0 gm/dL) 9.2 Hct (36.0 - 46.0 %) 27.9 MCV (80 - 100 fL) 87 MCH (26 - 34 pg) 29 RDW (11.6 - 14.8 %) 13.9 Neut % (Auto) (50 - 75 %) 69.7 Lymph % (Auto) (25 - 40 %) 19.0 [place] % (Auto) (3 - 14 %) 7.9 Eos % (Auto) (0 - 4 %) 3.0 Baso % (Auto) (0 - 2 %) 0.4 Plt Count, EDTA (150 - 400 K/uL) 262 PUBS MCHC (31 - 37 g/dL) 33 Discharge Instructions/Meds - f/u in surgical clinic in the next two weeks - take medications as prescribed, the medications are primidone 100 mg daily at bedtime, carbidopa/levodopa 25/100 mg 4 times a day, omeprazole 40 mg daily, ondansetron 40 mg daily, Carafate 1 mg 4 times a day - pt will be on nsaids, acetaminophen and lidocaine patch for pain control
--- NOTE | 2016-11-28 14:49 | NUR ---
REPORT GIVEN TO KELVIN SOTELO AT [facility] AT 1440. ALL QUESTIONS ANSWERED.
--- NOTE | 2016-11-28 16:03 | NUR ---
PT JUST LEFT VIA WHEELCHAIR TO [facility]. IV REMOVED WITHOUT ISSUE. WENT OVER ALL PAPERWORK WITH BROTHER WHO IS POA OF MEDICAL. SCRIPTS IN PACKET WITH OTHER DOCUMENTS. WEDGE, CLOTHING AND PERSONAL ITEMS WERE GIVEN TO PT. VSS, NO PAIN OR OTHER ISSUES.
== END 2016-11-28 16:07 | DRG 470 ==
LOC: ED SRH 18:31 → TRANS SRH 20:15 → ACUTE2 SRH 23:30
PROVIDERS: Orthopaedic Surgery; ADMIT Student in an Organized Health Care Education/Training Program
PROC: 0SRR0JA Replacement of Right Hip Joint, Femoral Surface with Synthetic Substitute, Uncemented, Open Approach (ICD-10-PCS; principal; 2016-11-25 16:00)
DX: S72.011A Unspecified intracapsular fracture of right femur, initial encounter for closed fracture (principal); W07.XXXA Fall from chair, initial encounter; Y93.89 Activity, other specified; Y92.511 Restaurant or cafe as the place of occurrence of the external cause; Y99.8 Other external cause status; R41.0 Disorientation, unspecified; T40.605A Adverse effect of unspecified narcotics, initial encounter; G20 Parkinson's disease; R26.0 Ataxic gait; E78.5 Hyperlipidemia, unspecified; Z86.73 Personal history of transient ischemic attack (TIA), and cerebral infarction without residual deficits

== ENCOUNTER → 2016-12-03 | Outpatient (CLI) | payer OTHER ==
[~2016-12-03] MED LIST: BAYER CHEWABLE81 MG PO; LIDODERM5 % TOP; MYSOLINE50 MG PO; SIMVASTATIN10 MG PO; SINEMET PO; TRAMADOL HCL50 MG PO; VITAMIN E200 UNIT PO; ZOLOFT25 MG PO
--- NOTE | 2016-12-03 12:33 | DIAGNOSTIC IMAGING REPORT ---
PROCEDURE: XR HIP 2VW W W/O AP PELVIS-RT INDICATION: SUBCAPITAL FX RT HIP, CLOSED TECHNIQUE: AP view of the pelvis and hips with lateral view of the right hip. COMPARISON: 11/26/2016 right hip and pelvis FINDINGS: Right HIP: Interim excision of right femoral head and neck with placement of right proximal femoral prosthesis (anatomic position). Overlying surgical clips PELVIS: Osseous pelvis is normal. IMPRESSION: 1. right proximal femoral prosthesis (anatomic position).
== END ==
LOC: XR SRH 11:59
DX: S72.011A Unspecified intracapsular fracture of right femur, initial encounter for closed fracture (principal); Z96.641 Presence of right artificial hip joint